=== PATIENT | male | born 1970 | race Caucasian/White ===

== ENCOUNTER 2019-12-06 07:05 | Inpatient (IN) | payer OTHER ==
[~2019-12-06] VITALS: Ht 182.9 cm; Wt 90.7 kg
[2019-12-06] VITALS (9 sets, daily range): BP systolic 107–137; BP diastolic 60–98
--- NOTE | 2019-12-06 07:10 | NUR ---
PT BIB RA FROM [facility] WITH A C/O GI BLEED. PT HAS A GTUBE WITH FRANDY BLOOD IN IT. PT IS DIAPHORETIC, TACHYPNEIC. PT HAS JONES TO GRAVITY. PT WAS PLACED ON THE MONITOR AND CONTINUOUS PULSE OX.
[2019-12-06] MEDS ORDERED: PANTOPRAZOLE 40 MG VIAL ONE (07:14)
[2019-12-06] MEDS ORDERED: ONDANSETRON HCL/PF 4 MG/2 ML VIAL ONE (07:14)
--- NOTE | 2019-12-06 07:20 | NUR ---
REPORT GIVEN TO KARLA RIZZO
--- NOTE | 2019-12-06 07:25 | NUR ---
18G IV STARTED ON LAC AND BLOOD WAS DRAWN. PINK TOP DRAWN AND BLOOD CULTURES X 2 DRAWN. PT IS STILL DIAPHORETIC AND COOL TO THE TOUCH. RESP ARE SHALLOW AND SLIGHTLY LABORED.
[2019-12-06] MEDS ORDERED: IV NS 0.9% 1,000 ML BAG IV ONE (07:30)
[2019-12-06] MEDS ORDERED: PANTOPRAZOLE 40 MG VIAL IV ONE (07:30)
[2019-12-06] MEDS ORDERED: ONDANSETRON HCL/PF 4 MG/2 ML VIAL IVP ONE (07:30)
--- NOTE | 2019-12-06 07:30 | NUR ---
MOM CALLED FOR UPDATE. WE HAVE THE CORRECT NUMBER.
[2019-12-06 07:36] LABS: BASOPHILS # (AUTO) 0.1 /CMM (0.0-0.2); BASOPHILS % (AUTO) 0.4 % (0.0-2.0); EOSINOPHILS % (AUTO) 0.2 % (0.0-6.0); HEMATOCRIT 53 % (39-51); HEMOGLOBIN 17.6 g/dL (13.5-17.5); LYMPHOCYTES # (AUTO) 0.5 /CMM (0.8-4.8); LYMPHOCYTES % (AUTO) 2.3 % (20.0-44.0); MEAN CORPUSCULAR HGB CONC 33 g/dl (31.0-36.0); MEAN CORPUSCULAR VOLUME 84 fL (80-96); MONOCYTES # (AUTO) 0.4 /CMM (0.1-1.30); MONOCYTES % (AUTO) 2.2 % (2.0-12.0); NEUTROPHILS # (AUTO) 19.3 /CMM (1.8-8.9); NEUTROPHILS % (AUTO) 94.9 % (43.0-81.0); PLATELET COUNT (AUTO) 174 /CMM (150-450); WHITE BLOOD COUNT (AUTO) 20.4 K/uL (4.3-11.0)
[2019-12-06 07:49] LABS: ALBUMIN 2.9 g/dL (3.4-5.0); BILIRUBIN,DIRECT 1.3 mg/dL (0.0-0.2); BILIRUBIN,TOTAL 2.8 mg/dL (0.2-1.0); CREATININE 1.7 mg/dL (0.6-1.3); POTASSIUM 5.1 mmol/L (3.5-5.1); TOTAL PROTEIN, SERUM 8.4 g/dL (6.4-8.2)
[2019-12-06] MEDS ORDERED: IV NS 0.9% 1,000 ML IV ONE (08:00)
[2019-12-06] MEDS ORDERED: PIPERACILLIN /TAZOBACTAM 3.375 G in IV D5W 50 ML IV ONE (08:00)
--- NOTE | 2019-12-06 08:00 | NUR ---
WHEELED OUT VIA RNEY FOR CT SCAN
[2019-12-06] MEDS ORDERED: CLINDAMYCIN 600 MG in IV D5W 100 ML IV ONE (09:00)
[2019-12-06] MEDS ORDERED: NA P133E RC (09:18)
[2019-12-06] MEDS ORDERED: FAMO20TA8 GT (09:18)
[2019-12-06] MEDS ORDERED: CHOL200026 GT (09:18)
[2019-12-06] MEDS ORDERED: TIOT18CA3 IH (09:18)
[2019-12-06] MEDS ORDERED: LOSA25TA27 GT (09:18)
[2019-12-06] MEDS ORDERED: HYDR-4077 GT (09:18)
[2019-12-06] MEDS ORDERED: INSU100V3 SQ (09:18)
[2019-12-06] MEDS ORDERED: DOCU-141 GT (09:18)
[2019-12-06] MEDS ORDERED: INSU100V7 SQ (09:18)
[2019-12-06] MEDS ORDERED: ACET-868 GT (09:18)
[2019-12-06] MEDS ORDERED: IPRA3AMP23 IH (09:18)
[2019-12-06] MEDS ORDERED: SENN-168 GT (09:18)
[2019-12-06] MEDS ORDERED: CARV12.52 GT (09:18)
[2019-12-06] MEDS ORDERED: FLUC200T GT (09:18)
[2019-12-06] MEDS ORDERED: NITR0.4T48 SL (09:18)
[2019-12-06] MEDS ORDERED: MELA3TAB63 GT (09:18)
[2019-12-06] MEDS ORDERED: GLUC1KIT IM (09:18)
[2019-12-06] MEDS ORDERED: BISA10SU11 RC (09:18)
[2019-12-06] MEDS ORDERED: NYST5ORA MM (09:18)
[2019-12-06] MEDS ORDERED: CLON1PAT2 TD (09:18)
[2019-12-06] MEDS ORDERED: CLOP75TA15 GT (09:18)
[2019-12-06] MEDS ORDERED: BECL10.62 IH (09:18)
[2019-12-06] MEDS ORDERED: AMIN30LI2 GT (09:18)
[2019-12-06] MEDS ORDERED: KRIL1CAP GT (09:18)
[2019-12-06] MEDS ORDERED: ATOR40TA GT (09:18)
[2019-12-06] MEDS ORDERED: MAGN400O6 GT (09:18)
[2019-12-06] MEDS ORDERED: NICO-676 TD (09:18)
[2019-12-06] MEDS ORDERED: ASPI-1169 GT (09:18)
[2019-12-06] MEDS ORDERED: DEXT1TAB29 GT (09:18)
[2019-12-06] MEDS ORDERED: ISOS10TA8 GT (09:18)
[2019-12-06] MEDS ORDERED: LEVA0.31 IH (09:18)
--- NOTE | 2019-12-06 09:32 | NUR ---
DR HIGGINBOTHAM AT BEDSIDE
--- NOTE | 2019-12-06 09:40 | NUR ---
called dr. vicente [phone] left [facility] [place].
--- NOTE | 2019-12-06 09:52 | NUR ---
PT ASSIGNED TO ICU [id number]
[2019-12-06] MEDS ORDERED: IV NS 0.9% 1,000 ML IV PRN (10:00)
[2019-12-06] MEDS ORDERED: FEE PK DOSING 1 MIN EA MC ONE (10:22)
--- NOTE | 2019-12-06 11:18 | NUR ---
dr carcamo at bedside
[2019-12-06] MEDS ORDERED: DIATR MEGLU/DIATRIZOATE SODIUM 30 ML BOTTLE (GASTROGRAPHIN) ONE ×2 (11:34→14:40)
--- NOTE | 2019-12-06 12:10 | NUR ---
DR LUDWIG SPOKE WITH FAMILY
[2019-12-06] MEDS ORDERED: MIDAZOLAM HCL 2 MG/2ML VIAL ONE ×2 (12:46→13:48)
[2019-12-06] MEDS ORDERED: ROCURONIUM BROMIDE 50 MG/5 ML ONE ×2 (12:46→12:50)
--- NOTE | 2019-12-06 12:59 | NUR ---
PICKED UP BY OR NURSE JAMAR. CHART OF PATIENT GIVEN.
[2019-12-06] MEDS ORDERED: BACITRACIN/POLYMYXIN B 15 GM TUBE TP ONE (14:11)
--- NOTE | 2019-12-06 14:28 | NUR ---
PT. ADMITTED FROM SURGERY AND PLACED INTO [facility] VENT VIA ET TUBE SIZE 8.0 SECURED @ 25 CM LIPLINE WITH PARAMETERS BELOW PER DR. FRANCO: AC14 VT 550ML FIO2 40% PEEP +5 BREATH SOUNDS BILATERAL COARSE RHONCHI. VENT IS PLUGGED INTO EMERGENCY OUTLET WITH ALARMS ON AND FUNCTIONING. BRIAN @ BEDSIDE. Addendum: 12/06/19 at 1455 by PRESTON CORREA RT Amended: Links added.
[2019-12-06] MEDS: IV 1/2NS 1000 ML 1,000 ML IV PRN (14:37)
[2019-12-06] MEDS ORDERED: PIPERACILLIN /TAZOBACTAM 3.375 G in IV D5W 100 ML IV SCH (15:00)
[2019-12-06] MEDS ORDERED: HEPARIN SODIUM, PORCINE 5000 UNITS/1 ML VIAL IV ONE (15:30)
[2019-12-06 15:52] LABS: BASOPHILS % (AUTO) 0.1 % (0.0-2.0); EOSINOPHILS % (AUTO) 0.1 % (0.0-6.0); HEMATOCRIT 44 % (39-51); HEMOGLOBIN 14.6 g/dL (13.5-17.5); LYMPHOCYTES # (AUTO) 0.7 /CMM (0.8-4.8); LYMPHOCYTES % (AUTO) 4.1 % (20.0-44.0); MEAN CORPUSCULAR HGB CONC 33 g/dl (31.0-36.0); MEAN CORPUSCULAR VOLUME 84 fL (80-96); MONOCYTES # (AUTO) 0.6 /CMM (0.1-1.30); MONOCYTES % (AUTO) 3.5 % (2.0-12.0); NEUTROPHILS # (AUTO) 16.8 /CMM (1.8-8.9); NEUTROPHILS % (AUTO) 92.2 % (43.0-81.0); PLATELET COUNT (AUTO) 121 /CMM (150-450); RED BLOOD CELL COUNT(AUTO) 5.21 MIL/uL (4.5-6.0); WHITE BLOOD COUNT (AUTO) 18.2 K/uL (4.3-11.0)
[2019-12-06 16:14] LABS: CALCIUM, SERUM 8.4 mg/dL (8.5-10.1); CREATININE 1.7 mg/dL (0.6-1.3); POTASSIUM 5.2 mmol/L (3.5-5.1)
[2019-12-06] MEDS: VANCOMYCIN 1 GM in IV D5W 250 ML IV SCH ×2 (16:15→23:42)
[2019-12-06] MEDS: HEPARIN INFUSION/D5W 500 ML IV PRN (16:23)
[2019-12-06] MEDS ORDERED: ACETAMINOPHEN 650 MG/20.3 ML UDC NG PRN (16:30)
[2019-12-06] MEDS ORDERED: MORPHINE SULFATE INJ 2 MG/ML DISP.SYRIN IV PRN (16:30)
[2019-12-06] MEDS ORDERED: DEXTROSE 50%-WATER 50 ML DISP.SYRIN IV PRN (16:30)
[2019-12-06 16:47] LABS: ABG BASE EXCESS -1.9 mmol/L; ABG OXYGEN SATURATION 94.2 % (92.0-98.5); ABG PCO2 33.5 mmHg (35.0-45.0); ABG PH 7.428 (7.350-7.450); ABG PO2 71.4 mmHg (75.0-100.0); AaDO2 175.3 mmHg; COHb 1.3 % (0.5-1.5); MetHb 0.4 % (0.0-1.5); O2Hb 92.6 % (94.0-97.0); PEEP,BG 5 cm H2O; SITE, ABG Right Brachial; VT, ABG 550 mL
[2019-12-06] MEDS: BLOOD SUGAR DIAGNOSTIC 1 EACH STRIP IN SCH (17:20)
[2019-12-06] MEDS: INSULIN REGULAR, HUMAN 100 UNIT/ML 3 ML VIAL SQ PRN ×2 (17:21→23:57)
[2019-12-06] MEDS: METRONIDAZOLE 500MG/ NS 100ML 500 MG in PREMIX 1 EA IV SCH (17:54)
[2019-12-06] MEDS ORDERED: PROPOFOL 100 ML IV PRN (18:00)
[2019-12-06] MEDS ORDERED: PIPERACILLIN /TAZOBACTAM 3.375 G in IV D5W 50 ML IV SCH (18:00)
--- NOTE | 2019-12-06 18:38 | NUR ---
RN CLOSING NOTES PT REMAINS INTUBATED. ON VENT. NO RESPIRATORY DISTRESS NOTED. NO SOB NOTED. NO SIGNS OF PAIN NOTED. OG IN PLACE CONNECTED TO LOW INTERMITTENT SUCTION. GT IN PLACE CONNECTED TO DRAIN. DRESSING IN PLACE. NO SIGNS OF BLEEDING NOTED. IVF I IV LINES IN PLACE. ON HEPARIN DRIP, PTT AT 2230. IVF INFUSING. FC IN PLACE. NO HEMATURIA NOTED. BLE ELEVATED. WILL ENDORSE FOR CONTINUITY OF CARE.
[2019-12-06] MEDS: CEFAZOLIN 1 GM in IV D5W 50 ML IV SCH (18:54)
--- NOTE | 2019-12-06 19:59 | NUR ---
OFFICER CAPTAIN. INITIAL ASSESSMENT. RECEIVED THE PT REST ON THE BED. ORALLY INTUBATED, .PT IS OBTUNDED, ETT #8 AC 14,TV 550,FIO2 40%,PEEP 5. SAT 98%. NO ACUTE DISTRESS NOTED. GIS DATABASE ADMINISTRATOR SHOWING NSR. RESPONDING DEEP PAIN FULL STIMULI S/P EX LAP GT PLACEMENT. DRAIN BAG CONNECTED TO GT. OGT LOW INTERMITTENT SUCTION.FC PATENT. NADER SOFT WRIST RESTRAINT CHECKED AND RELEASED. NO INJURY OR REDNESS NOTED. IV RT FA 18G,LT AC 14,TV 550,FIO2 40%,PEEP 5. SAT 98%. IV LT AC 18G,RT FA 18,.IVF 1/2NS 100ML/H,HEPARIN DRIP 1600 UNIT , WILL CONTINUE TO MONITOR VITALS.
[2019-12-07] VITALS (24 sets, daily range): BP systolic 115–146; BP diastolic 58–99
[2019-12-07] MEDS: CEFAZOLIN 1 GM in IV D5W 50 ML IV SCH ×3 (00:33→17:21)
[2019-12-07] MEDS: METRONIDAZOLE 500MG/ NS 100ML 500 MG in PREMIX 1 EA IV SCH ×3 (00:35→16:23)
--- NOTE | 2019-12-07 01:24 | NUR ---
SAP SOLUTION MANAGER CONSULTANT. PTT >170.NOTIFIED MD CHAPARRO. . ORDER IS HEPARIN DRIP HOLD 2HOURS. THEN RESTART PER PROTOCOL
--- NOTE | 2019-12-07 04:27 | NUR ---
SCOURING PADS SUPERVISOR. AM CARE, ORAL CARE, BED BATH GIVEN. LINEN CHANGED, REMAINING SAME VENT SETTING TOLERATED WELL. SAT 98%. NO ACUTE DISTRESS NOTED, INSTRUMENT/CONTROL TECHNICIAN SHOWING NSR. IV RT AND LT HAND. IVF 1/2NS 100ML/H. DIPRIVAN 4MCG/KG/MIN. FC PATENT. OGT LOW INTERMITTENT SUCTION.FC PATENT. URINE DRAINING. HOB ELEVATED. NADER SOFT WRIST RESTRAINT CHECKED AND RELEASED. NO INJURY OR REDNESS NOTED. TURN AND REPOSITION Q2H. GT SITE BLEEDING NOTED. WILL CONTINUE TO MONITOR.
[2019-12-07 05:17] LABS: BASOPHILS % (AUTO) 0.1 % (0.0-2.0); EOSINOPHILS % (AUTO) 0.1 % (0.0-6.0); HEMATOCRIT 38 % (39-51); HEMOGLOBIN 12.6 g/dL (13.5-17.5); LYMPHOCYTES # (AUTO) 0.8 /CMM (0.8-4.8); LYMPHOCYTES % (AUTO) 6.1 % (20.0-44.0); MEAN CORPUSCULAR HGB CONC 33 g/dl (31.0-36.0); MEAN CORPUSCULAR VOLUME 84 fL (80-96); MONOCYTES # (AUTO) 0.6 /CMM (0.1-1.30); MONOCYTES % (AUTO) 4.7 % (2.0-12.0); NEUTROPHILS # (AUTO) 12.2 /CMM (1.8-8.9); PLATELET COUNT (AUTO) 114 /CMM (150-450); RED BLOOD CELL COUNT(AUTO) 4.52 MIL/uL (4.5-6.0); WHITE BLOOD COUNT (AUTO) 13.7 K/uL (4.3-11.0)
[2019-12-07 05:29] LABS: CALCIUM, SERUM 8.2 mg/dL (8.5-10.1); CREATININE 1.6 mg/dL (0.6-1.3); MAGNESIUM 1.7 mg/dL (1.8-2.4); PHOSPHORUS 4.3 mg/dL (2.5-4.9); POTASSIUM 4.3 mmol/L (3.5-5.1)
[2019-12-07] MEDS: BLOOD SUGAR DIAGNOSTIC 1 EACH STRIP IN SCH ×5 (06:02→23:27)
[2019-12-07] MEDS: INSULIN REGULAR, HUMAN 100 UNIT/ML 3 ML VIAL SQ PRN ×3 (06:07→18:13)
[2019-12-07] MEDS: HEPARIN INFUSION/D5W 500 ML IV PRN ×2 (06:33→18:15)
--- NOTE | 2019-12-07 06:36 | NUR ---
OIL PAINTER. PTT IS 50.3. NOTIFIED MD CHAPARRO. RESTARTED WITH 800 UNITS/H RECHECK PTT 1230 PN . GT PLACEMENT SITE BLEEDING NOTED. MD CHAPARRO MADE AWARE
--- NOTE | 2019-12-07 07:26 | NUR ---
ogt intermittent no residual. gt drain 100 ml
--- NOTE | 2019-12-07 08:00 | NUR ---
RECEIVED ORALLY INTUBATED TO VENT- EASILY AROUSABLE TO NAME. ABLE TO FOLLOW SIMPLE COMMANDS. ABLE TO TRACK SPEAKER. POSITIVE GAG/COUGH REFLEX. HEPARIN GTT AT 800 UNITS/HOUR. VITAL SIGNS STABLE.
--- NOTE | 2019-12-07 08:20 | NUR ---
PATIENT SEEN AND EXAMINED BY DR. MENDOZA-BRAYDEN FIELDS TO START VENT WEANING. PATIENT ON DIPRIVAN DRIP AT 4 MCG/KG/MIN -TURNED OFF AT THIS TIME. WILL AWAIT FOR PATIENT TO BE FULLY AWAKE-RT AWARE OF WEANING ORDERS.
--- NOTE | 2019-12-07 08:49 | NUR ---
VENT CHANGES MADE BELOW PER DR. MENDOZA: CPAP 5 PS 10 FIO2 40% RN AWARE ON ABOVE CHANGES. Addendum: 12/07/19 at 0851 by PRESTON CORREA RT Amended: Links added.
[2019-12-07] MEDS: INSULIN GLARGINE, 100 UNIT/ML CARTRIDGE SQ SCH ×3 (09:00→22:39)
--- NOTE | 2019-12-07 09:00 | NUR ---
PATIENT DIAPHORETIC -BS CHECKED 193. TEMP-98.6. PATIENT S/P EXPLOR LAP-NPO STATUS. HELD LANTUS AT THIS TIME.
--- NOTE | 2019-12-07 10:00 | NUR ---
PATIENT TOLERATING VENT WEANING WELL. NO DISTRESS NOTED.
[2019-12-07 10:14] LABS: ABG BASE EXCESS 2.4 mmol/L; ABG OXYGEN SATURATION 95.5 % (92.0-98.5); ABG PCO2 35.7 mmHg (35.0-45.0); ABG PH 7.477 (7.350-7.450); ABG PO2 78.8 mmHg (75.0-100.0); AaDO2 165.3 mmHg; COHb 0.6 % (0.5-1.5); MetHb 0.3 % (0.0-1.5); O2Hb 94.6 % (94.0-97.0); SITE, ABG Right Radial; VENT MODE, BG CPAP 5 / PS10
--- NOTE | 2019-12-07 10:45 | NUR ---
DR. LUDWIG AT BEDSIDE. PER MD FIELDS TO D/C OGT. GT TO CONTINUE TO DRAIN TO GRAVITY.
[2019-12-07] MEDS ORDERED: DC PROPOFOL WHEN EXTUBATED XX PRN (11:00)
[2019-12-07] MEDS ORDERED: Magnesium 1GM/D5W 100ML PREMIX 100 ML IV SCH (11:10)
--- NOTE | 2019-12-07 11:30 | NUR ---
@ 1130 pt. extubated and placed into 3 lpm o2 flow via nasal cannula. spo2 95% HR 115 - 118 bpm Addendum: 12/07/19 at 1136 by PRESTON CORREA RT Amended: Links added.
[2019-12-07] MEDS: VANCOMYCIN 1 GM in IV D5W 250 ML IV SCH ×2 (11:59→22:35)
--- NOTE | 2019-12-07 12:00 | NUR ---
PATIENT AWAKE, MUMBLES WORDS POST EXTUBATION. GOOD COUGH EFFORT. KEPT ON HIGH FOWLERS POSITION. LOW GRADE FEVER-COOLING MEASURES ONGOING.
--- NOTE | 2019-12-07 14:00 | NUR ---
PTT WITHIN THERAPEUTIC RANGE. NO CHANGES MADE. HEPARIN GTT REMAINS AT 800 UNITS PER HOUR.
[2019-12-07] MEDS: IV 1/2NS 1000 ML 1,000 ML IV PRN ×2 (16:29)
--- NOTE | 2019-12-07 19:10 | NUR ---
STABLE WITHOUT DISTRESS. NO ACTIVE SIGNS OF BLEEDING.
--- NOTE | 2019-12-07 19:30 | NUR ---
Received report from the Day RN Nancy. Initial assessment done. Pt. resting, alert, awake, oriented x 1, arousable to name. Pt. calm, in a sitting position in bed/with high back rest. Pt. on 3L/NC continuous, with mild short of breath, Sinus Tachycardia @ the monitor, no s/s of facial grimacing except for occasional non-productive cough. Pt. with left sided weakness and Aphasic, with continuous IV drip of heparin @ 800 units per hour @ 16 mls./hr. @ the [facility] with latest APTT result of 50.7 which is therapeutic. IVF of 1/2 NS @ 100 mls./hr. continuous @ the RFA. Will continue to monitor pt. Keep pt. safe, clean, dry, warm and comfortable in bed.
--- NOTE | 2019-12-07 20:00 | NUR ---
Complete assessment done. Pt. alert, awake, oriented x 1 only. Quiet, calm and Aphasic with Left sided- weakness. Pt. arousable to name and can follow simple commands. Pt. provided assistance with regards to activities of daily living. Provided bedside nsg. care for comfort of position, hygiene and safety while in bed. Pt. HOB UP scooted high in a sitting position as pt. wants for comfort. Pt. on 02 @ 3L/NC continuous, on continuous IVF of 1/2 NS @ 100 mls./hr., and IV drip of Heparin @ 800 units/hr. Pt.'s latest APTT today is = 50.7 , on therapeutic level, Heparin remains 800 units/ hr. = 16 mls./hr. continuous. Pt. next APTT will be drawn for AM labs. tomorrow 12/08/2019. Pt. s/p G-tube placement with drainage by gravity with greenish output. Pt. face and body calm and No s/s of agitation or discomfort @ this time. Pt. encouraged not to pull 02 from his nose. Pt. still on NPO.
--- NOTE | 2019-12-07 22:30 | NUR ---
Accucheck taken with result of BS = 202 , No Insulin given since pt. is not taking any food or NPO and is NOT on Dextrose IVF. Pt. NOT given any Insulin S/S to prevent Hypoglycemia.
[2019-12-07 22:33] LABS: CALCIUM, SERUM 7.6 mg/dL (8.5-10.1); CREATININE 1.6 mg/dL (0.6-1.3); POTASSIUM 4.1 mmol/L (3.5-5.1)
--- NOTE | 2019-12-07 22:35 | NUR ---
Antibiotic Vancomycin IV given @ around this time. Pt. provided health teachings on the use/benefits of this antibiotic being administered IV - see Emar. Keep pt. safe, comfortable and fourdrinier machine tender bed.
[2019-12-08] VITALS (15 sets, daily range): BP systolic 119–148; BP diastolic 53–89
--- NOTE | 2019-12-08 | NUR ---
Reassessment done, temp. = 98.2 degrees F. Afebrile and sitting quietly in bed. Accucheck is about 202 @ this time. Pt. still on NPO, no coverage of s/s given.
[2019-12-08] MEDS: METRONIDAZOLE 500MG/ NS 100ML 500 MG in PREMIX 1 EA IV SCH ×3 (01:44→16:44)
--- NOTE | 2019-12-08 01:44 | NUR ---
Flagyl 500 mg. IV given. Will continue to monitor pt.
--- NOTE | 2019-12-08 02:04 | NUR ---
Accucheck taken for spot check with result of BS = 224 , No coverage of Insulin S/S due to continuous NPO.
[2019-12-08] MEDS: CEFAZOLIN 1 GM in IV D5W 50 ML IV SCH (02:08)
--- NOTE | 2019-12-08 02:08 | NUR ---
Ancef 1 GM IV given @ this time. Pt. provided health teachings. Pt. turned/repositioned and placed in a high back rest @ 75 degrees angle. Keep 02 sat. greater 92 %, still on 3L/NC continuous. NO s/s of pain or discomfort. No s/s of agitation or moaning or crying. No s/s of facial grimacing. Pt. is resting quietly. Pt. has slurred speech when trying to speak occasionally.
--- NOTE | 2019-12-08 02:35 | NUR ---
Pt. HR = 110-115/minute and is 02 sat. from 88-89 % on 3L/NC intermittently then it will go back 90-93 %, with hard, dry, non- productive, mild to mod. short of breath, BP = 148/89. Doctor Henri Lozano called/notified about pt. present condition. Dr. Henri Lozano gave new orders of breathing treatment Xopenex and Metoprolol IV prn - see orders.
[2019-12-08] MEDS ORDERED: METOPROLOL TARTRATE INJ 5 MG/5 ML AMPUL IVP PRN (03:00)
[2019-12-08] MEDS ORDERED: LEVALBUTEROL HCL NEB 1.25 MG/0.5 ML VIAL.NEB NEB ONE (03:00)
[2019-12-08] MEDS: IV 1/2NS 1000 ML 1,000 ML IV PRN (03:34)
--- NOTE | 2019-12-08 04:00 | NUR ---
Pt. sleeping @ this time. Maintained a safe and quiet environment. Will continue to monitor pt. V/S.
[2019-12-08 05:31] LABS: BASOPHILS % (AUTO) 0.2 % (0.0-2.0); EOSINOPHILS % (AUTO) 0.1 % (0.0-6.0); HEMATOCRIT 28 % (39-51); HEMOGLOBIN 9.4 g/dL (13.5-17.5); LYMPHOCYTES # (AUTO) 0.6 /CMM (0.8-4.8); LYMPHOCYTES % (AUTO) 5.1 % (20.0-44.0); MEAN CORPUSCULAR HGB CONC 34 g/dl (31.0-36.0); MEAN CORPUSCULAR VOLUME 83 fL (80-96); MONOCYTES # (AUTO) 0.4 /CMM (0.1-1.30); MONOCYTES % (AUTO) 3.9 % (2.0-12.0); NEUTROPHILS # (AUTO) 10.3 /CMM (1.8-8.9); NEUTROPHILS % (AUTO) 90.7 % (43.0-81.0); PLATELET COUNT (AUTO) 87 /CMM (150-450); RED BLOOD CELL COUNT(AUTO) 3.33 MIL/uL (4.5-6.0); WHITE BLOOD COUNT (AUTO) 11.4 K/uL (4.3-11.0)
[2019-12-08 05:43] LABS: CREATININE 1.6 mg/dL (0.6-1.3); POTASSIUM 3.8 mmol/L (3.5-5.1)
--- NOTE | 2019-12-08 06:00 | NUR ---
Partial bedbath given. Cleansed pt. and changed all bed linens. Gastric drainage - dark greenish with output of 575 mls. total for the whole 12 hrs. shift.
--- NOTE | 2019-12-08 06:21 | NUR ---
Accucheck AC taken with result of BS = 216. No coverage given. Pt. on continuous NPO and IVF is not on Dextrose. Keep pt. in sitting position to breathe good. Pt. with RT or breathing treatment as scheduled.
[2019-12-08 06:22] LABS: LYMPHOCYTES % (MANUAL) 3 % (16-48); MONOCYTES % (MANUAL) 2 % (0-11.0); NEUTROPHILS % (MANUAL) 95 (42-76)
[2019-12-08] MEDS: BLOOD SUGAR DIAGNOSTIC 1 EACH STRIP IN SCH ×4 (06:27→23:58)
--- NOTE | 2019-12-08 07:00 | NUR ---
Gave report to Day shift assigned KARLA Deleon. The latest APTT result done early Am today is = 45.7 rounding to 46. Day Shift KARLA Deleon will follow up with the Heparin protocol.
[2019-12-08] MEDS: ALBUTEROL FS 2.5 MG/3 ML VIAL.NEB NEB SCH ×3 (07:34→19:34)
[2019-12-08] MEDS ORDERED: LEVALBUTEROL HCL NEB 1.25 MG/0.5 ML VIAL.NEB NEB SCH (07:35)
--- NOTE | 2019-12-08 09:05 | NUR ---
ICU/RN DUE MEDS ARE GIVEN ORDERED.PT IS ON HEPARIN DRIP.V/S STABLE.DR LUDWIG SEEN THE PT NEW ORDERS RECEIVED.
[2019-12-08] MEDS ORDERED: GLUCERNA 1.2 1,000 ML BOTTLE NG PRN (11:00)
--- NOTE | 2019-12-08 11:00 | NUR ---
ICU/RN HEPARIN DRIP STOP.OK TO USE G-TUBE .START FEEDING AT 20 ML/HR. WOUND DRESSING DONE PT HAS SMALL BLOODY DISCHARGE FROM G-TUBE SIDE AND SURGICAL WOUND SIDE, NEW DRESSING APPLIED.V/S STABLE,AFEBRILE.
[2019-12-08] MEDS: APIXABAN 5 MG TABLET PO SCH ×2 (12:19→16:45)
[2019-12-08] MEDS: PIPERACILLIN /TAZOBACTAM 3.375 G in IV D5W 50 ML IV SCH ×3 (12:20→23:52)
--- NOTE | 2019-12-08 12:55 | NUR ---
ICU/RN PT TRANSFERRED TO TELE UNIT IN STABLE CONDITION.V/S STABLE.AFEBRILE.NO PAIN REPORTED AT THIS TIME.REPORT GIVEN TO STEPHANIE/RN. BS-204.
--- NOTE | 2019-12-08 13:00 | NUR ---
BERTRAND RN NOTE RECEIVED REPORT AT BEDSIDE, PATIENT IN BED ASLEEP BUT EASILY AROUSABLE TO TOUCH AND NAME. PATIENT IS ALERT AND ORIENTED TO SELF ONLY, APHASIC. HAS A NEW GT SITE PLACED 12/06. S/P EXTUBATED ON 12/07. CURRENTLY ON 3L NC, SATING WELL. ON TELE MONITOR, SR. HAS A JONES CATHETER WITH CLEAR AND YELLOW URINE. NO FEEDING AT THIS TIME, BUT PER CLAIMS SPECIALIST OK TO START GLUCERNA 1.2 AT 20 ML/HR. NO GOAL FOR NOW. HAS A RIGHT FA #18 AND LEFT AC #18 WITH HALF NS AT 75 ML/HR. PATIENT WAS ON HEPARIN DRIP IN ICU, BUT DC'D TODAY AND STARTED ON ELIQUIS TODAY. BED LOCKED AND IN LOWEST POSITION. CALL LIGHT WITHIN REACH. WILL CONTINUE TO MONITOR
[2019-12-08] MEDS: INSULIN REGULAR, HUMAN 100 UNIT/ML 3 ML VIAL SQ PRN ×2 (13:22→17:52)
--- NOTE | 2019-12-08 17:28 | NUR ---
RN NOTE VANCO TROUGH 21, WILL NOT ADMINISTER VANCO IV. PHARMACY MADE AWARE
[2019-12-08] MEDS ORDERED: VANCOMYCIN 1 GM in IV D5W 250 ML IV SCH (18:00)
--- NOTE | 2019-12-08 18:53 | NUR ---
RN CLOSING NOTE PATIENT IN BED, AWAKE AND ALERT. NO COMPLAINS OF ANY PAIN NOR SOB AT THIS TIME. ALL MEDS GIVEN. ALL NEEDS MET. REPOSITIONED PER PROTOCOL. JONES INTACT WITH CLEAR AND YELLOW URINE. GTF WITH GLUCERNA 1.2 AT 20 ML/HR. NO GOAL FOR NOW. NO RESIDUAL NOTED. WILL ENDORSE TO NOC SHIFT FOR LIANET
--- NOTE | 2019-12-08 20:45 | NUR ---
RN OPENING NOTE REPORT RECIEVED FROM MAXIME ACOSTA. PATIENT IN BED, AWAKE AND ALERT. PT HAS RESIDUAL APHASIA PER RECORDS FROM [facility]. PT GRUNTS/MUMBLES FOR RESPONSE TO VERBAL STIMULI. JONES CATHETER INTACT DRAINING CLEAR YELLOW URINE. GTF INITIATED TODAY, GLUCERNA 1.2 AT 20 ML/HR WITH NO RESIDUAL,GT PLACEMENT CONFIRMED WITH AUSCULTATION, FLUSHED. NO ORDERS TO ADVANCE TUBE FEEDING WILL CONT TO MONITOR.
[2019-12-08] MEDS ORDERED: INSULIN GLARGINE, 100 UNIT/ML CARTRIDGE SQ SCH (22:00)
[2019-12-09] VITALS (12 sets, daily range): BP systolic 137–170; BP diastolic 68–105
[2019-12-09] MEDS: INSULIN REGULAR, HUMAN 100 UNIT/ML 3 ML VIAL SQ PRN ×4 (00:04→17:09)
[2019-12-09] MEDS: IV 1/2NS 1000 ML 1,000 ML IV PRN ×2 (00:06→17:03)
[2019-12-09] MEDS: METRONIDAZOLE 500MG/ NS 100ML 500 MG in PREMIX 1 EA IV SCH ×2 (00:32→08:34)
[2019-12-09] MEDS: ALBUTEROL FS 2.5 MG/3 ML VIAL.NEB NEB SCH ×4 (01:39→20:20)
--- NOTE | 2019-12-09 01:53 | NUR ---
patient found to have removed iv from left ac. patient cleaned pressure dressing applied iv catheter intact. iv to right forearm is cdi and patent. arm sleeve applied to right arm will cont to monitor.
--- NOTE | 2019-12-09 05:00 | NUR ---
PICTURE TAKEN OF SACRAL WOUND MEPILEX APPLIED.
[2019-12-09] MEDS: BLOOD SUGAR DIAGNOSTIC 1 EACH STRIP IN SCH ×3 (05:47→17:10)
[2019-12-09] MEDS: PIPERACILLIN /TAZOBACTAM 3.375 G in IV D5W 50 ML IV SCH (05:47)
[2019-12-09 07:11] LABS: BASOPHILS % (AUTO) 0.1 % (0.0-2.0); EOSINOPHILS % (AUTO) 0.7 % (0.0-6.0); HEMATOCRIT 21 % (39-51); HEMOGLOBIN 7.2 g/dL (13.5-17.5); LYMPHOCYTES # (AUTO) 0.4 /CMM (0.8-4.8); LYMPHOCYTES % (AUTO) 5.4 % (20.0-44.0); MEAN CORPUSCULAR HGB CONC 34 g/dl (31.0-36.0); MEAN CORPUSCULAR VOLUME 83 fL (80-96); MONOCYTES # (AUTO) 0.4 /CMM (0.1-1.30); MONOCYTES % (AUTO) 5.7 % (2.0-12.0); NEUTROPHILS # (AUTO) 6.7 /CMM (1.8-8.9); NEUTROPHILS % (AUTO) 88.1 % (43.0-81.0); PLATELET COUNT (AUTO) 86 /CMM (150-450); RED BLOOD CELL COUNT(AUTO) 2.58 MIL/uL (4.5-6.0); WHITE BLOOD COUNT (AUTO) 7.6 K/uL (4.3-11.0)
[2019-12-09 07:21] LABS: CALCIUM, SERUM 7.6 mg/dL (8.5-10.1); CREATININE 1.6 mg/dL (0.6-1.3); POTASSIUM 3.7 mmol/L (3.5-5.1)
--- NOTE | 2019-12-09 07:31 | NUR ---
INCINERATOR PLANT LABORER NOTE PATIENT IN BED AWAKE ALERT X1 . ON 3L NC NO SOB NOTED AT THIS TIME, WITH JONES CATH TO GRAVITY WITH YELLOW COLOR URINE , ON G TUBE FEEDING ORDERED AT 20 ML PER HOUR, KEEP HOB ELEVATED AT ALL TIME , RT FA IN PLACE ON IVF ORDERED , BED IN LOWEST AND LOCKED POSITION , CALL LIGHT WITHIN REACH , PLAN OF CARE DISCUSSED WITH PATIENT, WILL MONITOR
--- NOTE | 2019-12-09 07:48 | NUR ---
MENTAL TESTER NOTE ON BREATHING TX ORDERED BY RT
[2019-12-09] MEDS: APIXABAN 5 MG TABLET PO SCH (08:34)
--- NOTE | 2019-12-09 08:42 | NUR ---
TELESALES MANAGER NOTE DR ROBERSON AT [facility] AWARE THAT HG 7.2 STATED THAT WILL ORDER 1INUT PRBC ,WILL F\U Addendum: 12/09/19 at 1248 by RADHA MIJARES RN [id number] DR ROBERSON AWARE THAT PLATELETS 82 Addendum: 12/09/19 at 1249 by RADHA MIJARES RN Platelets 86, dr roberson aware of it
--- NOTE | 2019-12-09 09:09 | NUR ---
WOUND CARE CONSULT: PT PRESENTS WITH INTACT DEEP TISSUE INJURY TO SACRAL/BUTTOCKS AREA AND ALSO NOTED TO HAVE DRY/INTACT SURGICAL DRESSING TO ABDOMEN. RECOMMENDATIONS MADE FOR SKIN PROTECTION AND WOUND CARE. SURGEON FOLLOWING ABDOMINAL INCISION. PER NURSING STAFF AND MD, PT ON ELIQUIS AT THIS TIME AND WAS PREVIOUSLY INTUBATED. PT ON ROLANDA ISOFLEX LOW AIRLOSS BED. MD IN AGREEMENT WITH PLAN OF CARE. Addendum: 12/09/19 at 0911 by ANGEL GARRETT WNDNU Amended: Links added.
[2019-12-09] MEDS ORDERED: Z GUARD REMEDY 2 OZ OINT TP PRN (09:30)
--- NOTE | 2019-12-09 09:44 | NUR ---
WASTEWATER DESIGN ENGINEER NOTE PER DR HIGGINBOTHAM ORDER ELIQUIS CHANGED TO 5 MG BID
[2019-12-09] MEDS: Z GUARD REMEDY 2 OZ OINT TP SCH (09:47)
[2019-12-09] MEDS: AMOX/CLAVULANATE 875 MG TABLET PO SCH ×2 (09:47→20:49)
[2019-12-09] MEDS: VANCOMYCIN 1 GM in IV D5W 250 ML IV SCH (09:51)
--- NOTE | 2019-12-09 10:36 | NUR ---
MS RN NOTE DR HIGGINBOTHAM SPOKE WITH MOTHER CHRISTIANO LIPSCOMB TO HAVE BLOOD TRANSFUSION
--- NOTE | 2019-12-09 11:06 | NUR ---
MS RN NOTE PER DIETARY OK TO HAVE F G TUBE FEEDING AT 20 ML PER HOUR AND MAX DOSE 75 ML PER HOUR ,WILL F\U
[2019-12-09] MEDS ORDERED: GLUCERNA 1.2 1,000 ML BOTTLE NG PRN ×2 (11:30)
--- NOTE | 2019-12-09 12:00 | NUR ---
MS RN NOTE IST 1UNIT PRBC START TO TRANSFUSE, NO ADVERSE REACTION NOTED AT THIS TIME, WILL MONITOR
--- NOTE | 2019-12-09 13:53 | NUR ---
ms rn note on breathing tx by rt ,cont on blood transfusion, no fever ,no co pain at this time will cont to monitor
--- NOTE | 2019-12-09 15:30 | NUR ---
MS RN NOTE BLOOD TRANSFUSION COMPLETED NOT IN DISTRESS, NO ADVERSE REACTION NOTED FAMILY AT BEDSIDE, SPOKE WITH DR HIGGINBOTHAM NOTIFIED THAT BP 170/75 WITH NEW ORDER GIVEN WILL F\U
[2019-12-09] MEDS: ISOSORBIDE DINITRATE (10MG) 10 MG TABLET GT SCH (16:10)
[2019-12-09] MEDS ORDERED: ISOSORBIDE DINITRATE (10MG) 10 MG TABLET GT SCH (17:00)
[2019-12-09] MEDS ORDERED: APIXABAN 5 MG TABLET PO SCH (17:00)
--- NOTE | 2019-12-09 17:00 | NUR ---
MS RN NOTE CONT ON IVF ORDERED ,NOT IN DITRESS, WILL CONT TO MONITOR
--- NOTE | 2019-12-09 19:03 | NUR ---
MS RN NOTE CONT ON G TUBE FEEDING AT 30 ML PER HOUR , KEEP HOB ELEVATED AT ALL TIME ,STILLON O2 ORDERED ,NO SOB NOTED , ON IVF ORDERED, KEEP CLEAN DRY ,REPOSITION DONE , CALL LIOGHT WITHIN REACH, WILL CONT TO MONITOR CLOSELY
--- NOTE | 2019-12-09 19:15 | NUR ---
MS/RN NOTES RECEIVED PT. LYING IN BED. PT. IS AWAKE AND OPENS EYES. PT. MAKES SOUNDS. PT. IS BREATHING EVEN AND UNLABORED ON 2LPM O2 VIA NC. NO SOB, RESPIRATORY DISTRESS OR S/S OF PAIN NOTED AT THIS TIME. PT. WITH RIGHT FOREARM 18 GAUGE PERIPHERAL IV PRESENT, PATENT AND INTACT ADMINISTERING TO PT. 1/2 NS @ 75 ML/HR. PT. WITH G-TUBE PRESENT, PATENT AND INTACT ADMINISTERING TO PT. GLUCERNA 1.2 @ 30ML/HR. PT. IS TOLERATING TUBE FEEDING WELL. NO RESIDUALS NOTED AT THIS TIME. PT. WITH JONES CATHETER PRESENT, PATENT AND INTACT. BED LOCKED AND IN LOWEST POSITION, SIDE RAILS UP X3, BED ALARM ON, WILL CONTINUE TO MONITOR.
[2019-12-09] MEDS: hydrALAZINE HCL 50 MG TABLET GT SCH (20:49)
[2019-12-09] MEDS ORDERED: INSULIN GLARGINE, 100 UNIT/ML CARTRIDGE SQ SCH (22:00)
[2019-12-10] MEDS: BLOOD SUGAR DIAGNOSTIC 1 EACH STRIP IN SCH ×4 (01:17→17:10)
[2019-12-10] MEDS: INSULIN REGULAR, HUMAN 100 UNIT/ML 3 ML VIAL SQ PRN ×3 (01:18→12:37)
[2019-12-10] MEDS: ALBUTEROL FS 2.5 MG/3 ML VIAL.NEB NEB SCH ×3 (02:35→14:09)
[2019-12-10 04:00] VITALS: BP 168/83
[2019-12-10] MEDS: hydrALAZINE HCL 50 MG TABLET GT SCH ×4 (06:06→17:17)
--- NOTE | 2019-12-10 06:06 | NUR ---
MS/RN NOTES PT. NOTED WITH ELEVATED BP 187/110 HR 105. PT. HAS NO S/S OF PAIN NOTED AT THIS TIME. PER CHARGE NURSE DIPAK DO NOT ADMINISTER PRN METOPROLOL IVP WITHOUT OFFICIAL ORDER FOR TELE MONITORING BY DR. HIGGINBOTHAM. ATTEMPTED TO CONTACT DR. HIGGINBOTHAM MULTIPLE TIMES AND WAS UNABLE TO REACH HIM. PER CHARGE NURSE DIPAK ADMINISTER TO PT. SCHEDULED 0900 HYDRALAZINE 50MG NOW AND CONTINUE TO MONITOR.
[2019-12-10 06:40] LABS: BASOPHILS % (AUTO) 0.2 % (0.0-2.0); EOSINOPHILS % (AUTO) 0.8 % (0.0-6.0); HEMATOCRIT 24 % (39-51); HEMOGLOBIN 8.3 g/dL (13.5-17.5); LYMPHOCYTES # (AUTO) 0.5 /CMM (0.8-4.8); LYMPHOCYTES % (AUTO) 5.9 % (20.0-44.0); MEAN CORPUSCULAR HGB CONC 34 g/dl (31.0-36.0); MEAN CORPUSCULAR VOLUME 84 fL (80-96); MONOCYTES # (AUTO) 0.6 /CMM (0.1-1.30); MONOCYTES % (AUTO) 6.8 % (2.0-12.0); NEUTROPHILS # (AUTO) 7.2 /CMM (1.8-8.9); NEUTROPHILS % (AUTO) 86.3 % (43.0-81.0); PLATELET COUNT (AUTO) 103 /CMM (150-450); RED BLOOD CELL COUNT(AUTO) 2.88 MIL/uL (4.5-6.0); WHITE BLOOD COUNT (AUTO) 8.3 K/uL (4.3-11.0)
--- NOTE | 2019-12-10 06:55 | NUR ---
MS/RN NOTES PT. IS LYING IN BED RESTING. BREATHING EVEN AND UNLABORED ON 2LPM O2 VIA NC. NO SOB, RESPIRATORY DISTRESS OR S/S OF PAIN NOTED AT THIS TIME. PT. WITH RIGHT FOREARM 18 GAUGE PERIPHERAL IV PRESENT, PATENT AND INTACT. PT. WITH G-TUBE PRESENT, PATENT AND INTACT ADMINISTERING TO PT. GLUCERNA 1.2 @ 40ML/HR. PT. IS TOLERATING TUBE FEEDING WELL. NO RESIDUALS NOTED AT THIS TIME AND THROUGHOUT SHIFT. PT. WITH JONES CATHETER PRESENT, PATENT AND INTACT. ALL PT. NEEDS MET. PT. OFFLOADED, TURNED AND REPOSITIONED Q2H AND NEEDED. BED LOCKED AND IN LOWEST POSITION, SIDE RAILS UP X3, BED ALARM ON, WILL ENDORSE TO DAYSHIFT NURSE FOR CONTINUITY OF CARE.
[2019-12-10 07:01] LABS: CALCIUM, SERUM 7.9 mg/dL (8.5-10.1); CREATININE 1.5 mg/dL (0.6-1.3); POTASSIUM 3.9 mmol/L (3.5-5.1)
[2019-12-10 08:00] VITALS: BP 174/103
[2019-12-10] MEDS ORDERED: ACETAMINOPHEN 650 MG/20.3 ML UDC GT PRN (08:46)
[2019-12-10] MEDS ORDERED: AMOX/CLAVULANATE 875 MG TABLET GT SCH (08:46)
[2019-12-10] MEDS ORDERED: CARVEDILOL 12.5 MG TABLET PO SCH (09:00)
[2019-12-10] MEDS ORDERED: AMLODIPINE BESYLATE 5 MG TABLET PO SCH (09:00)
[2019-12-10] MEDS ORDERED: AMLODIPINE BESYLATE 5 MG TABLET GT SCH ×2 (09:00)
[2019-12-10] MEDS ORDERED: hydrALAZINE HCL 50 MG TABLET GT SCH (09:00)
[2019-12-10] MEDS ORDERED: hydrALAZINE HCL 50 MG TABLET PO SCH (09:00)
[2019-12-10] MEDS ORDERED: CARVEDILOL 12.5 MG TABLET GT SCH ×3 (09:00)
[2019-12-10] MEDS: VANCOMYCIN 1 GM in IV D5W 250 ML IV SCH (09:22)
[2019-12-10] MEDS: APIXABAN 5 MG TABLET GT SCH ×2 (09:26→17:18)
[2019-12-10] MEDS: ISOSORBIDE DINITRATE (10MG) 10 MG TABLET GT SCH ×2 (09:31→17:18)
[2019-12-10] MEDS: Z GUARD REMEDY 2 OZ OINT TP SCH (09:31)
[2019-12-10 16:00] VITALS: BP 151/89
--- NOTE | 2019-12-10 16:14 | NUR ---
RN OPENING NOTE: RECEIVED PATIENT IN BED THIS MORNING RESTING IN BED. NO ACUTE DISTRESS NOTED. PATIENT IS ALERT BUT APHASIC. BED REST. JONES CATHETER IN PLACE, DRAINING WELL. PATIENT IS NPO ON GT FEEDING, TOLERATING WELL, LOW RESIDUAL. IV 18G ON RFA, FLUSHING WELL, C/D/I. BREATH SOUNDS CLEAR UPON AUSCULTATION. O2 3L/MIN VIA NC. SAFETY MEASURES IMPLEMENTED. CALL LIGHT IS WITHIN REACH. BED IN LOWEST POSITION WITH SIDE RAILS UP X2. WILL CONTINUE TO MONITOR PATIENT FOR ANY CHANGES.
--- NOTE | 2019-12-10 17:15 | NUR ---
RN CLOSING NOTES PATIENT HAS BEEN DISCHARGED TO [facility]. REPORT GIVEN TO MIREYA ACOSTA. EXITCARE WAS UTILIZED DURING DC PROCESS, JONES CATH LEFT INTACT. FAMILY NOTIFIED OF PATIENTS DEPARTURE. PT LEFT VIA EMT. VITAL SIGNS WERE STABLE. PATIENT REFUSED FOLLOWUP SACRAL PICTURES.
[2019-12-10 17:18] VITALS: BP 154/85
== END 2019-12-10 18:34 | DRG 222 ==
LOC: ER 07:07 → ICU 10:17 → TELE1 12-08 12:47 → MEDSG1 12-09 09:05
PROVIDERS: ADMIT Internal Medicine; ATTEND Internal Medicine
PROC: 0DH60UZ Insertion of Feeding Device into Stomach, Open Approach (ICD-10-PCS; 2019-12-06)
PROC: 30233N1 Transfusion of Nonautologous Red Blood Cells into Peripheral Vein, Percutaneous Approach (ICD-10-PCS; principal; 2019-12-09)
DX: K94.22 Gastrostomy infection (principal); K65.9 Peritonitis, unspecified; N17.9 Acute kidney failure, unspecified; L89.159 Pressure ulcer of sacral region, unspecified stage; I82.402 Acute embolism and thrombosis of unspecified deep veins of left lower extremity; D69.6 Thrombocytopenia, unspecified; E86.0 Dehydration; L03.311 Cellulitis of abdominal wall; D64.9 Anemia, unspecified; E11.9 Type 2 diabetes mellitus without complications; E78.5 Hyperlipidemia, unspecified; I25.10 Atherosclerotic heart disease of native coronary artery without angina pectoris; R13.10 Dysphagia, unspecified; Z79.82 Long term (current) use of aspirin; Z79.4 Long term (current) use of insulin; I69.320 Aphasia following cerebral infarction; N18.9 Chronic kidney disease, unspecified; I12.9 Hypertensive chronic kidney disease with stage 1 through stage 4 chronic kidney disease, or unspecified chronic kidney disease; I69.391 Dysphagia following cerebral infarction; Z95.5 Presence of coronary angioplasty implant and graft
CPT/HCPCS: 31720; 36415; 36600; 71045-TC; 74018; 80048-TC; 80076-TC; 80202-TC; 82803-TC; 82962-TC; 83690-TC; 83735-TC; 84100-TC; 84484-TC; 85025-TC; 85730-TC; 86850-TC; 86921-TC; 87040-TC; 87081-TC; 93970-TC; 94002-TC; 94003-TC; 94799-TC; A4216; C9113; G0378; J0690; J1644; J1815; J2250; J2405; J2543; J3370; J3475; J3490; J7030; J7050; J7060; P9016-BL; Q9963

== ENCOUNTER 2020-06-05 15:55 | Inpatient (IN) | payer OTHER ==
[2020-06-05] VITALS (7 sets, daily range): BP systolic 78–105; BP diastolic 50–71
[~2020-06-05] VITALS: Ht 167.6 cm; Wt 83.0 kg
[~2020-06-05 15:55] MED LIST: ACET-868 GT; AMIN30LI2 GT; ASPI-1169 GT; ATOR40TA GT; BECL10.62 IH; BISA10SU11 RC; CARV12.52 GT; CHOL200026 GT; CLON1PAT2 TD; CLOP75TA15 GT; DEXT1TAB29 GT; DOCU-141 GT; FAMO20TA8 GT; FLUC200T GT; GLUC1KIT IM; HYDR-4077 GT; INSU100V3 SQ; INSU100V7 SQ; IPRA3AMP23 IH; ISOS10TA8 GT; KRIL1CAP GT; LEVA0.31 IH; LOSA25TA27 GT; MAGN400O6 GT; MELA3TAB41 GT; NA P133E RC; NICO-676 TD; NITR0.4T48 SL; NYST5ORA MM; SENN-261 GT; TIOT18CA3 IH
[2020-06-05] MEDS ORDERED: ACETAMINOPHEN ES 500 MG TABLET ONE (16:18)
--- NOTE | 2020-06-05 16:20 | NUR ---
mother felipe left contact # [phone]
[2020-06-05 16:28] LABS: BASOPHILS % (AUTO) 0.2 % (0.0-2.0); HEMATOCRIT 28 % (39-51); HEMOGLOBIN 9.2 g/dL (13.5-17.5); LYMPHOCYTES # (AUTO) 0.2 /CMM (0.8-4.8); LYMPHOCYTES % (AUTO) 8.1 % (20.0-44.0); MEAN CORPUSCULAR HGB CONC 33 g/dl (31.0-36.0); MEAN CORPUSCULAR VOLUME 86 fL (80-96); MONOCYTES % (AUTO) 0.5 % (2.0-12.0); NEUTROPHILS # (AUTO) 2.5 /CMM (1.8-8.9); NEUTROPHILS % (AUTO) 90.2 % (43.0-81.0); RED BLOOD CELL COUNT(AUTO) 3.27 MIL/uL (4.5-6.0); WHITE BLOOD COUNT (AUTO) 2.8 K/uL (4.3-11.0)
[2020-06-05] MEDS ORDERED: IV NS 0.9% 1,000 ML IV ONE ×2 (16:30→17:00)
[2020-06-05] MEDS ORDERED: ACETAMINOPHEN 650 MG/20.3 ML UDC GT ONE (16:30)
[2020-06-05 16:36] LABS: CALCIUM, SERUM 9.6 mg/dL (8.5-10.1); CARBON DIOXIDE 24 mmol/L (21-32); CHLORIDE 103 mmol/L (98-107); CREATININE 2.8 mg/dL (0.6-1.3); GLUCOSE 135 mg/dL (74-106); SODIUM SERUM 140 mmol/L (136-145); UREA NITROGEN, BLOOD 71 mg/dL (7-18)
[2020-06-05 16:49] LABS: ALANINE AMINOTRANSFERASE 31 U/L (12-78); ALBUMIN 3.1 g/dL (3.4-5.0); ALKALINE PHOSPHATASE 224 U/L (46-116); ASPARTATE AMINOTRANSFERASE 40 U/L (15-37); B-TYPE NATRIURETIC PEPTIDE 2894 PG/ML (0-125); BILIRUBIN,TOTAL 0.5 mg/dL (0.2-1.0); TOTAL PROTEIN, SERUM 7.1 g/dL (6.4-8.2)
--- NOTE | 2020-06-05 16:55 | NUR ---
GAVE MOVE SHEET AND CLINICALS TO ADMITTING
[2020-06-05] MEDS ORDERED: PANTOPRAZOLE 80 MG in IV NS 0.9% 500 ML IV PRN (17:00)
[2020-06-05] MEDS ORDERED: PANTOPRAZOLE 80 MG in IV NS 0.9% 100 ML IV ONE (17:00)
[2020-06-05] MEDS ORDERED: PIPERACILLIN /TAZOBACTAM 2.25 G in IV D5W 50 ML IV ONE (17:00)
--- NOTE | 2020-06-05 17:00 | NUR ---
KIMBERLYN FROM [facility]. TO ER BED 6. AWAKE, ALERT AND CONFUSED. NON VERBAL. BROUGHT IN FOR FEVER AND DESAT. PER REPORT, PT HAVE A FEVER OF 104. AND O2 SAT NOTED IN THE 80%S. PT IS PRESENTED DIAPHORETIC. PT IS NOTED WITH HEMATURIA WHICH IS NOTED FROM HIS JONES CATH. UPON CHECKING PLACEMENT OF GT, NOTED BROWN RESIDUAL. PT WAS NOTED WITH ORAL TEMP OF 103.6. MD WAS AT THE BEDSIDE FOR EVAL. ORDERS RECEIVED NOTED AND CARRIED OUT. PT IS ON MONITOR
[2020-06-05 17:09] LABS: D-DIMER 3.48 mg/L(FEU (0.17-0.50)
--- NOTE | 2020-06-05 17:10 | NUR ---
CALLED FACILITY PER ORDER TO ASK WHEN LAST ELIQUIS AND PLAVIX GIVEN. ELIQUIS 5MG LAST GIVEN 06/05/20 0900 AND PLAVIX 75MG 06/04/20 1700, SPOKE WITH JEWELS, NURSE. PER JEWELS, PT HAS BEEN ON MONITOR FOR HEMATURIA. MADE AWARE.
[2020-06-05 17:14] LABS: LEUKOCYTE ESTERASE ,URINE TRACE (NEGATIVE); PH,URINE 8.5 (5.0-8.0); PROTEIN,URINE 3+ mg/dl (NEGATIVE); UROBILINOGEN,URINE 0.2 EU/dL (0.2)
[2020-06-05 17:15] LABS: BILIRUBIN,URINE SMALL (NEGATIVE); BLOOD, URINE 3+ Ery/uL (NEGATIVE); UGLUCOSE 100 MG/DL mg/dL (NEGATIVE)
[2020-06-05 17:18] LABS: APPEARANCE,URINE BLOODY (CLEAR); COLOR,URINE RED (YELLOW); KETONES,URINE NEGATIVE (NEGATIVE); NITRITE, URINE NEGATIVE (NEGATIVE)
[2020-06-05 17:19] LABS: BACTERIA,URINE None seen /HPF (None Seen); RBC,URINE TOO NUMEROUS TO COUN /HPF (0-2); SQUAMOUS EPITHELIAL CELL,UR Few /HPF (None Seen)
--- NOTE | 2020-06-05 17:20 | NUR ---
PAGED DR SINGH
[2020-06-05 17:39] LABS: BAND % (MANUAL) 16 % (0.0-5.0); EOSINOPHILS % (MANUAL) 1 % (0-4); LYMPHOCYTES % (MANUAL) 7 % (16-48); MONOCYTES % (MANUAL) 2 % (0-11.0); NEUTROPHILS % (MANUAL) 74 (42-76)
[2020-06-05 17:44] LABS: PLATELET COUNT (AUTO) 80 /CMM (150-450)
[2020-06-05] MEDS ORDERED: VIT500LI GT (17:45)
[2020-06-05] MEDS ORDERED: LACT1TAB22 GT (17:45)
[2020-06-05] MEDS ORDERED: MULT9LIQ6 GT (17:45)
[2020-06-05] MEDS ORDERED: ROSU40TA GT (17:45)
[2020-06-05] MEDS ORDERED: FERR220E2 GT (17:45)
[2020-06-05] MEDS ORDERED: EPOE40002 IJ (17:45)
[2020-06-05] MEDS ORDERED: CEFT1VIA15 IV (17:45)
[2020-06-05] MEDS ORDERED: QUET25TA GT (17:45)
[2020-06-05] MEDS ORDERED: HYDR25TA4 GT (17:45)
[2020-06-05] MEDS ORDERED: LABE100T5 GT (17:45)
[2020-06-05] MEDS ORDERED: AMLO10TA7 GT (17:45)
[2020-06-05] MEDS ORDERED: LORA-258 GT (17:45)
[2020-06-05] MEDS ORDERED: TAMS-12 GT (17:45)
[2020-06-05] MEDS ORDERED: APIX5TAB GT (17:45)
[2020-06-05] MEDS ORDERED: METF-440 GT (17:45)
[2020-06-05] MEDS ORDERED: CLON0.1T GT (17:45)
[2020-06-05] MEDS ORDERED: SULF1TAB48 GT (17:45)
[2020-06-05] MEDS ORDERED: LORA2VIA11 IM (17:45)
[2020-06-05] MEDS ORDERED: INSU100V36 SQ (17:45)
[2020-06-05] MEDS ORDERED: NUT.237L31 GT ×2 (17:45)
[2020-06-05] MEDS ORDERED: CAND16TA13 GT (17:45)
[2020-06-05] MEDS ORDERED: IV D5/0.45 NACL 1,000 ML IV PRN (17:49)
--- NOTE | 2020-06-05 17:49 | NUR ---
PHARMACY CALLED FOR MEDS
[2020-06-05] MEDS ORDERED: ACETAMINOPHEN 325 MG TABLET PO PRN (18:00)
[2020-06-05] MEDS ORDERED: ZOLPIDEM TARTRATE 5 MG TABLET PO PRN (18:00)
[2020-06-05] MEDS ORDERED: MAGNESIUM HYDROXIDE 30 ML UDC PO PRN (18:00)
[2020-06-05] MEDS ORDERED: ONDANSETRON HCL/PF 4 MG/2 ML VIAL IVP PRN (18:00)
[2020-06-05] MEDS ORDERED: MAG HYDROX/AL HYDROX/SIMETH 30 ML UDC PO PRN (18:00)
[2020-06-05] MEDS ORDERED: Z GUARD REMEDY 2 OZ OINT TP PRN (18:00)
--- NOTE | 2020-06-05 18:02 | NUR ---
CALLED NURSING SUP FOR TELE BED
[2020-06-05 18:14] LABS: FERRITIN 214 ng/mL (8-388)
--- NOTE | 2020-06-05 18:23 | NUR ---
pt to ct on bran
[2020-06-05 19:55] LABS: BASOPHILS % (AUTO) 0.1 % (0.0-2.0); EOSINOPHILS % (AUTO) 0.2 % (0.0-6.0); HEMATOCRIT 24 % (39-51); HEMOGLOBIN 7.6 g/dL (13.5-17.5); LYMPHOCYTES # (AUTO) 0.4 /CMM (0.8-4.8); LYMPHOCYTES % (AUTO) 2.5 % (20.0-44.0); MEAN CORPUSCULAR HGB CONC 32 g/dl (31.0-36.0); MEAN CORPUSCULAR VOLUME 87 fL (80-96); MONOCYTES # (AUTO) 0.3 /CMM (0.1-1.30); MONOCYTES % (AUTO) 2.3 % (2.0-12.0); NEUTROPHILS # (AUTO) 13.5 /CMM (1.8-8.9); NEUTROPHILS % (AUTO) 94.9 % (43.0-81.0); PLATELET COUNT (AUTO) 68 /CMM (150-450); RED BLOOD CELL COUNT(AUTO) 2.76 MIL/uL (4.5-6.0)
--- NOTE | 2020-06-05 20:16 | NUR ---
nursing sup called for bed
[2020-06-05 20:20] LABS: WHITE BLOOD COUNT (AUTO) 14.2 K/uL (4.3-11.0)
[2020-06-05 20:21] LABS: BILIRUBIN,DIRECT 0.2 mg/dL (0.0-0.2)
--- NOTE | 2020-06-05 21:09 | NUR ---
report given to miranda le for nuno
--- NOTE | 2020-06-05 21:15 | NUR ---
urine output: 1350ml dark red
[2020-06-05] MEDS ORDERED: VANCOMYCIN 1.5 GM in IV D5W 500ml IV ONE (21:30)
--- NOTE | 2020-06-05 21:45 | NUR ---
PT TRANSPORTED TO UNIT ON GURNEY WITH EMT AND RN AT BEDSIDE W/ ACLS PROTOCOL. NAD NOTED DURING TRANSPORT.
[2020-06-05] MEDS ORDERED: VANCOMYCIN 1 GM VIAL ONE (21:52)
--- NOTE | 2020-06-05 23:00 | NUR ---
RN NOTES 2140 AM - ADMITTED PATIENT FROM ER AWAKE , ALERT TO NAME, NONVERBAL ABLE TO TRACK EYES. 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 WITH O2 4LPM VIA NC SATURATION 98%. PATIETN DIAGNOSED WITH HEMATURIA AD PNA. WT MULTIPLE MEDICAL HISTORY (SEE PMHX) NA NEGATIVE FOR COVID. WITH GT INTACT AND PATENT WITH 5 CC RESIDUAL, CLAMPED IV SITE ON RFA G 18 AND LAC G 18 C/D/I WITH PROTONIX DRIP ORDERED. PATIENT HAS 3 WAY JONES CATH PRESENT WITH BRIGHT RED COLOR URINE OUTPUT. MD AWARE KEPT PT CLEAN AND COMFORTABLE IN BED. ANCA CONT. TO MONITOR
[2020-06-05] MEDS ORDERED: PIPERACILLIN /TAZOBACTAM 2.25 G VIAL IV ONE (23:20)
[2020-06-05] MEDS: PIPERACILLIN /TAZOBACTAM 2.25 G in IV NS 0.9% 50 ML IV SCH (23:30)
[2020-06-05] MEDS ORDERED: PHENYLEPHRINE 10 MG/ML VIAL ONE (23:36)
[2020-06-05] MEDS: PHENYLEPHRINE 50 MG in IV NS 0.9% 245 ML IV PRN ×2 (23:51→23:53)
[2020-06-06] VITALS (75 sets, daily range): BP systolic 79–161; BP diastolic 42–100
[2020-06-06 05:05] LABS: BASOPHILS % (AUTO) 0.1 % (0.0-2.0); EOSINOPHILS % (AUTO) 0.2 % (0.0-6.0); HEMATOCRIT 25 % (39-51); HEMOGLOBIN 7.8 g/dL (13.5-17.5); LYMPHOCYTES # (AUTO) 1.1 /CMM (0.8-4.8); LYMPHOCYTES % (AUTO) 4.3 % (20.0-44.0); MEAN CORPUSCULAR HGB CONC 31 g/dl (31.0-36.0); MEAN CORPUSCULAR VOLUME 87 fL (80-96); MONOCYTES # (AUTO) 1.5 /CMM (0.1-1.30); NEUTROPHILS # (AUTO) 22.8 /CMM (1.8-8.9); NEUTROPHILS % (AUTO) 89.4 % (43.0-81.0); PLATELET COUNT (AUTO) 66 /CMM (150-450); RED BLOOD CELL COUNT(AUTO) 2.89 MIL/uL (4.5-6.0); WHITE BLOOD COUNT (AUTO) 25.5 K/uL (4.3-11.0)
[2020-06-06 05:19] LABS: CALCIUM, SERUM 8.4 mg/dL (8.5-10.1); CREATININE 2.4 mg/dL (0.6-1.3); MAGNESIUM 2.3 mg/dL (1.8-2.4); PHOSPHORUS 4.1 mg/dL (2.5-4.9); POTASSIUM 3.8 mmol/L (3.5-5.1)
[2020-06-06 05:24] LABS: THYROID STIMULATING HORMONE 0.328 uIU/mL (0.358-3.74)
[2020-06-06 05:46] LABS: BAND % (MANUAL) 33 % (0.0-5.0); LYMPHOCYTES % (MANUAL) 3 % (16-48); NEUTROPHILS % (MANUAL) 60 (42-76)
[2020-06-06 05:47] LABS: MONOCYTES % (MANUAL) 4 % (0-11.0)
[2020-06-06] MEDS ORDERED: PIPERACILLIN /TAZOBACTAM 2.25 G VIAL IV ONE (06:00)
[2020-06-06] MEDS: PIPERACILLIN /TAZOBACTAM 2.25 G in IV NS 0.9% 50 ML IV SCH (06:14)
[2020-06-06] MEDS ORDERED: FEE PK DOSING 1 MIN EA MC ONE (07:02)
--- NOTE | 2020-06-06 07:15 | NUR ---
RN NOTES ASLEEP WELL THROUGHOUT THE SHIFT, DENIES PAIN. NO S/S OF BLEEDING NOTED. O2 TITRATED TO 2LPM VIA NC SATURATION REMAINED 98-100%. AFEBRILE. TMAX 99.4 LAST TEMPERATURE CHECKED WAS 97.6 DEG FHARENHEIGHT. NO HEMATURIA NOW,JONES CATH WITH JEFFY COLOR URINE. GT WITH CLEAR LIQUID OUTPUT. NO SIGNIFICANT CHANGES THROUGHOUT THE SHIFT.
--- NOTE | 2020-06-06 07:20 | NUR ---
RN INITIAL NOTES RECEIVED PT AWAKE, NON-VERBAL. UNABLE TO FOLLOW COMMANDS. ON 02 VIA NC AT 2LPM. NO RESPIRATORY DISTRESS NOTED. NO SOB NOTED. NO SIGNS OF PAIN NOTED. IV LINES IN PLACE. IVF INFUSING. ON VEE AT 0.2MCG/KG/MIN. WILL TITRATE ACCORDINGLY. GTUBE IN PLACE, CLAMPED. JONES IN PLACE. NO HEMATURIA NOTED. WILL CONTINUE TO MONITOR
[2020-06-06] MEDS ORDERED: Z GUARD REMEDY 2 OZ OINT TP PRN (08:00)
[2020-06-06] MEDS ORDERED: IV NS 0.9% 1,000 ML IV PRN (08:18)
[2020-06-06] MEDS ORDERED: PANTOPRAZOLE 40 MG VIAL IV SCH (09:00)
[2020-06-06] MEDS: IV NS 0.9% 1,000 ML IV PRN ×2 (10:06→14:44)
[2020-06-06] MEDS ORDERED: PIPERACILLIN /TAZOBACTAM 2.25 G in IV D5W 50 ML IV SCH (12:00)
--- NOTE | 2020-06-06 13:00 | NUR ---
RN NOTES SEEN AND EXAMINED BY DR LOJA. AWARE OF LAB VALUES AND IMAGING STUDIES. NO SIGNS OF ACTIVE BLEEDING NOTED. HEMATURIA IMPROVED. ON VEE DRIP, WILL TITRATE ACCORDINGLY. WILL CLOSELY MONITOR
[2020-06-06] MEDS: PHENYLEPHRINE 50 MG in IV NS 0.9% 245 ML IV PRN (14:45)
[2020-06-06] MEDS: MEROPENEM 500 MG in IV NS 0.9% 100 ML IV SCH (17:00)
[2020-06-06] MEDS: PANTOPRAZOLE 40 MG VIAL IV SCH (17:00)
--- NOTE | 2020-06-06 18:48 | NUR ---
RN CLOSING NOTES NO SIGNIFICANT CHANGES NOTED. NO RESPIRATORY DISTRESS NOTED. NO SOB NOTED. VEE OFF AT 1700. KEPT CLEAN AND DRY. REPOSITIONING Q2 WILL ENDORSE FOR CONTINUITY OF CARE.
--- NOTE | 2020-06-06 19:30 | NUR ---
RN NOTES RECEIVED PATIENT IN BED AWAKE, UNABLE TO FOLLOW COMMANDS. BREATHING NORMAL NO SOB NOTED. RESPIRATION EVEN NON LABORED. TELE MONITOR SHOWS ST. GT CLAMPED. F/C IN PLACE, INTACT NO HEMATURIA NOTED. IV SITE RAC INTACT FLUSHES WELL. SAFETY MEASURES IN PLACE, SIDE RAILS UP,CALL LIGHT WITHIN REACH. WILL CONT TO MONITOR FOR LIANET.
[2020-06-06] MEDS: LORAZEPAM INJ 2 MG/ML VIAL IV PRN (20:18)
[2020-06-06 20:29] LABS: BASOPHILS # (AUTO) 0.1 /CMM (0.0-0.2); BASOPHILS % (AUTO) 0.5 % (0.0-2.0); EOSINOPHILS % (AUTO) 0.7 % (0.0-6.0); HEMATOCRIT 26 % (39-51); HEMOGLOBIN 8.4 g/dL (13.5-17.5); LYMPHOCYTES # (AUTO) 1.3 /CMM (0.8-4.8); LYMPHOCYTES % (AUTO) 7.2 % (20.0-44.0); MEAN CORPUSCULAR HGB CONC 32 g/dl (31.0-36.0); MEAN CORPUSCULAR VOLUME 86 fL (80-96); MONOCYTES # (AUTO) 0.8 /CMM (0.1-1.30); MONOCYTES % (AUTO) 4.4 % (2.0-12.0); NEUTROPHILS # (AUTO) 15.8 /CMM (1.8-8.9); NEUTROPHILS % (AUTO) 87.2 % (43.0-81.0); PLATELET COUNT (AUTO) 68 /CMM (150-450); RED BLOOD CELL COUNT(AUTO) 3.07 MIL/uL (4.5-6.0); WHITE BLOOD COUNT (AUTO) 18.1 K/uL (4.3-11.0)
[2020-06-06] MEDS ORDERED: VANCOMYCIN 1 GM in IV D5W 250 ML IV SCH (21:00)
[2020-06-06 21:05] LABS: BAND % (MANUAL) 7 % (0.0-5.0); EOSINOPHILS % (MANUAL) 5 % (0-4); LYMPHOCYTES % (MANUAL) 4 % (16-48); MONOCYTES % (MANUAL) 4 % (0-11.0); NEUTROPHILS % (MANUAL) 80 (42-76)
[2020-06-07] VITALS (20 sets, daily range): BP systolic 74–190; BP diastolic 35–123
--- NOTE | 2020-06-07 | NUR ---
RN NOTES PATIENT JUMPING OUT FROM BED, UNABLE TO FOLLOW COMMANDS.TRIED TO CONVINCES HIM BUT UNABLE TO FOLLOW DIRECTIONS. MD NOTIFIED AND RECEIVED NEW ORDER FOR 1:1 SITTER. NOTED AND CARRIED OUT BY ED CHARGE NURSE. WILL CONT TO MONITOR FOR LIANET.
[2020-06-07] MEDS: IV NS 0.9% 1,000 ML IV PRN ×3 (01:28→14:05)
[2020-06-07] MEDS: LORAZEPAM INJ 2 MG/ML VIAL IV PRN (02:07)
[2020-06-07 04:21] LABS: BASOPHILS % (AUTO) 0.3 % (0.0-2.0); EOSINOPHILS % (AUTO) 1.2 % (0.0-6.0); HEMATOCRIT 27 % (39-51); HEMOGLOBIN 8.7 g/dL (13.5-17.5); LYMPHOCYTES # (AUTO) 1.3 /CMM (0.8-4.8); LYMPHOCYTES % (AUTO) 7.9 % (20.0-44.0); MEAN CORPUSCULAR HGB CONC 32 g/dl (31.0-36.0); MEAN CORPUSCULAR VOLUME 86 fL (80-96); MONOCYTES % (AUTO) 6.1 % (2.0-12.0); NEUTROPHILS # (AUTO) 13.8 /CMM (1.8-8.9); NEUTROPHILS % (AUTO) 84.5 % (43.0-81.0); PLATELET COUNT (AUTO) 69 /CMM (150-450); RED BLOOD CELL COUNT(AUTO) 3.14 MIL/uL (4.5-6.0); WHITE BLOOD COUNT (AUTO) 16.3 K/uL (4.3-11.0)
[2020-06-07 04:48] LABS: ALBUMIN 2.7 g/dL (3.4-5.0); BILIRUBIN,TOTAL 0.4 mg/dL (0.2-1.0); CREATININE 1.4 mg/dL (0.6-1.3); PHOSPHORUS 1.7 mg/dL (2.5-4.9); POTASSIUM 3.2 mmol/L (3.5-5.1); TOTAL PROTEIN, SERUM 6.6 g/dL (6.4-8.2)
[2020-06-07] MEDS: MEROPENEM 500 MG in IV NS 0.9% 100 ML IV SCH ×2 (05:05→16:13)
[2020-06-07 05:25] LABS: BAND % (MANUAL) 7 % (0.0-5.0)
[2020-06-07 05:26] LABS: EOSINOPHILS % (MANUAL) 1 % (0-4); LYMPHOCYTES % (MANUAL) 9 % (16-48); MONOCYTES % (MANUAL) 5 % (0-11.0); NEUTROPHILS % (MANUAL) 78 (42-76)
--- NOTE | 2020-06-07 07:02 | NUR ---
RN NOTES PATIENT REMAINS ON IV FLUIDS NO S/S OF DISTRESS NOTED. BREATHING NORMAL NO SOB NOTED. ON ROOM AIR SATURATING 92-95%. TELE MONITOR READING ST. GT INTACT 10CC RESIDUAL NOTED. F/C INTACT URINE RUNNING WELL TO GRAVITY NO HEMATURIA NOTED. DURING SHIFT PATIENT WAS TRYING TO PULL HIS GT, F/C NEW ORDER RECEIVED FOR BUE SOFT RESTRAINS AND ATIVAN. RESTRAINS ARE IN PLACE FOR SAFETY RELEASED AND CHECKED FOR CIRCULATION AND PULSE. SAFETY MEASURES IN PLACE, CALL LIGHT WITHIN REACH. WILL ENDORSE TO AM NURSE FOR LIANET.
--- NOTE | 2020-06-07 07:20 | NUR ---
RN INITIAL NOTES RECEIVED PT AWAKE, A/O X1 WITH PERIODS OF CONFUSION. ON ROOM AIR. NO RESPIRATORY DISTRESS NOTED. NO SOB NOTED. DENIES ANY PAIN. IV LINE IN PLACE. IVF INFUSING. JONES IN PLACE. NO HEMATURIA NOTED. BLE ELEVATED. 1:1 SITTER. WILL CONTINUE TO MONITOR
[2020-06-07] MEDS: PANTOPRAZOLE 40 MG VIAL IV SCH ×2 (09:22→16:13)
[2020-06-07] MEDS: POTASSIUM CHLORIDE 20 MEQ TAB.PRT.SR PO SCH ×3 (10:19→12:22)
--- NOTE | 2020-06-07 10:40 | NUR ---
RN NOTES PT TRANSFERRED TO [facility]-2. PT A/OX1. NO RESPIRATORY DISTRESS NOTED. NO SOB NOTED. DENIES ANY PAIN. PT STABLE. KARLA CAGLE TOOK OVER PT'S CARE.
--- NOTE | 2020-06-07 10:45 | NUR ---
RN/BERTRAND RECEIVED PATIENT IN BED. NO ACUTE DISTRESS NOTED. PATIENT ALERT & ORIENTED X 1 WITH CONFUSION. PATIENT ON ROOM AIR, SATURATING WELL AT 96%. PATIENT G-TUBE IN PLACE, INTACT, PATENT, FLUSHED WELL. PATIENT LEFT FOREARM IV ACCESS INTACT, PATENT, FLUSHED WELL. BILATERAL SOFT WRIST RESTRAINTS ON DUE TO PATIENT PULLING OUT LINES AND INTERFERING WITH CARE. NO ACUTE DISTRESS NOTED. SITTER IN PLACE. PATIENT SAFETY MAINTAINED. CALL LIGHT WITHIN REACH. WILL CONTINUE TO MONITOR. VITAL SIGNS T- 98.3, HR 99, RR 17, O2SAT 96%, BP 132/96
--- NOTE | 2020-06-07 11:20 | NUR ---
WOUND CARE CONSULT: SEEN PATIENT AT BEDSIDE,PATIENT PRESENTS IASD ON SACRAL .PRESENT ON ADMISSION, CURRENT JER CORE IS 1O ,ISOFLEX WHIT BED TO BE PLACE,HAS JONES CATH AT THIS TIME ,RECOMMENDATION MADE FOR SKIN PROTECTION AND CARE ,DISCUSSED WITH NURSING STAFF, IN AGREEMENT WITH PLAN OF CARE, WILL SEE PRN
[2020-06-07] MEDS: VANCOMYCIN 1.25 GM in IV D5W 250 ML IV SCH (14:05)
[2020-06-07] MEDS: POTASSIUM PHOSPHATE MM 7.5 MMOL in IV NS 0.9% 100 ML IV SCH ×2 (14:51→17:41)
--- NOTE | 2020-06-07 18:38 | NUR ---
PATIENT IN BED. NO ACUTE DISTRESS NOTED. PATIENT ALERT & ORIENTED X 1 WITH CONFUSION. PATIENT ON ROOM AIR, SATURATING WELL AT 96%. PATIENT G-TUBE IN PLACE, INTACT, PATENT, FLUSHED WELL. PATIENT LEFT FOREARM IV ACCESS INTACT, PATENT, FLUSHED WELL. PATIENT LEFT UPPER ARM IV ACCESS INTACT, PATENT, FLUSHED WELL. BILATERAL SOFT WRIST RESTRAINTS ON DUE TO PATIENT PULLING OUT LINES AND INTERFERING WITH CARE. NO ACUTE DISTRESS NOTED. SITTER IN PLACE. PATIENT SAFETY MAINTAINED. CALL LIGHT WITHIN REACH. WILL ENDORSE PLAN OF CARE TO ONCOMING NURSE FOR CONTINUITY OF CARE.
[2020-06-07 23:29] LABS: BASOPHILS % (AUTO) 0.4 % (0.0-2.0); EOSINOPHILS % (AUTO) 1.6 % (0.0-6.0); HEMATOCRIT 33 % (39-51); HEMOGLOBIN 10.4 g/dL (13.5-17.5); LYMPHOCYTES # (AUTO) 1.2 /CMM (0.8-4.8); LYMPHOCYTES % (AUTO) 9.5 % (20.0-44.0); MEAN CORPUSCULAR HGB CONC 32 g/dl (31.0-36.0); MEAN CORPUSCULAR VOLUME 86 fL (80-96); MONOCYTES # (AUTO) 0.7 /CMM (0.1-1.30); MONOCYTES % (AUTO) 5.9 % (2.0-12.0); NEUTROPHILS # (AUTO) 10.2 /CMM (1.8-8.9); NEUTROPHILS % (AUTO) 82.6 % (43.0-81.0); PLATELET COUNT (AUTO) 77 /CMM (150-450); RED BLOOD CELL COUNT(AUTO) 3.83 MIL/uL (4.5-6.0); WHITE BLOOD COUNT (AUTO) 12.3 K/uL (4.3-11.0)
[2020-06-08 00:07] LABS: BAND % (MANUAL) 13 % (0.0-5.0); LYMPHOCYTES % (MANUAL) 8 % (16-48); MONOCYTES % (MANUAL) 5 % (0-11.0); NEUTROPHILS % (MANUAL) 75 (42-76)
[2020-06-08] MEDS: LORAZEPAM INJ 2 MG/ML VIAL IV PRN (00:29)
[2020-06-08 04:00] VITALS: BP 155/105
[2020-06-08] MEDS: HYDROCODONE/APAP 5/325MG 1 EACH TABLET PO PRN (05:26)
[2020-06-08] MEDS: MEROPENEM 500 MG in IV NS 0.9% 100 ML IV SCH (05:27)
[2020-06-08 06:06] LABS: BASOPHILS % (AUTO) 0.5 % (0.0-2.0); EOSINOPHILS % (AUTO) 1.7 % (0.0-6.0); HEMATOCRIT 29 % (39-51); HEMOGLOBIN 9.5 g/dL (13.5-17.5); LYMPHOCYTES % (AUTO) 9.8 % (20.0-44.0); MEAN CORPUSCULAR HGB CONC 33 g/dl (31.0-36.0); MEAN CORPUSCULAR VOLUME 84 fL (80-96); MONOCYTES # (AUTO) 0.7 /CMM (0.1-1.30); MONOCYTES % (AUTO) 6.4 % (2.0-12.0); NEUTROPHILS # (AUTO) 8.5 /CMM (1.8-8.9); NEUTROPHILS % (AUTO) 81.6 % (43.0-81.0); PLATELET COUNT (AUTO) 68 /CMM (150-450); RED BLOOD CELL COUNT(AUTO) 3.45 MIL/uL (4.5-6.0); WHITE BLOOD COUNT (AUTO) 10.5 K/uL (4.3-11.0)
[2020-06-08 06:28] LABS: CALCIUM, SERUM 9.1 mg/dL (8.5-10.1); CREATININE 1.1 mg/dL (0.6-1.3); POTASSIUM 3.6 mmol/L (3.5-5.1)
--- NOTE | 2020-06-08 07:09 | NUR ---
RN notes Patient in bed, awake, restless, alert, confused. Noted moderate amount of blood coming out of the penis. Vital signs wnl. Remains afebrile with skin warm and dry to touch. Will endorse to next shift for continuity of care.
[2020-06-08 08:00] VITALS: BP 167/100
[2020-06-08 08:44] LABS: BAND % (MANUAL) 1 % (0.0-5.0); EOSINOPHILS % (MANUAL) 1 % (0-4); LYMPHOCYTES % (MANUAL) 9 % (16-48); MONOCYTES % (MANUAL) 3 % (0-11.0); NEUTROPHILS % (MANUAL) 86 (42-76)
[2020-06-08] MEDS: PANTOPRAZOLE 40 MG VIAL IV SCH ×2 (09:11→17:06)
[2020-06-08] MEDS: VANCOMYCIN 1.25 GM in IV D5W 250 ML IV SCH (09:12)
--- NOTE | 2020-06-08 10:03 | NUR ---
JUVENCIO DAVILA AWARE OF PATIENT'S PROCALCITONIN LEVELS OF 15.84
--- NOTE | 2020-06-08 10:36 | NUR ---
RN OPENING NOTE: RECEIVED PATIENT IN BED THIS MORNING. PATIENT IS ALERT BUT CONFUSED, DOES NOT RESPOND TO QUESTIONS BEING ASKED. PATIENT IS SATING WELL ON ROOM AIR. PATIENT HAS JONES, DRAINING WELL. ;SIVA PORTER, C/D/I, FLUSHING WELL, NO SIGNS OF COMPLICATIONS NOTED. SAFETY MEASURES IMPLEMENTED, BED IN LOWEST POSITION, LOCKED, SIDE RAILS UP, CALL LIGHT WITHIN REACH. WILL CONTINUE TO MONITOR PATIENT FOR CHANGES.
--- NOTE | 2020-06-08 10:46 | NUR ---
JUVENCIO DAVILA AWARE OF PATIENT'S SLIT URINARY MEATUS.
--- NOTE | 2020-06-08 11:46 | NUR ---
GIOVANNI METER ENGINEER AWARE PATIENT HAS CRE IN BLOOD
[2020-06-08] MEDS ORDERED: AMPICILLIN 3 GM in IV NS 0.9% 100 ML IV SCH (12:30)
--- NOTE | 2020-06-08 12:38 | NUR ---
SPOKE TO JUVENCIO DAVILA, STATED IF NO NEW PROCEDURE, WE CAN START TF. NO NEW PROCEDURE. CONTACTED DIETARY IN REGARDS TO TF, LEFT VM, AWAITING CALL BACK. Addendum: 06/08/20 at 1331 by SHERLYN WOODS RN SPOKE TO YUDI, STARTING GLUCERNA 1.2
[2020-06-08] MEDS ORDERED: MEROPENEM 500 MG in IV NS 0.9% 100 ML IV SCH (13:00)
[2020-06-08 13:10] VITALS: BP 145/90
[2020-06-08] MEDS ORDERED: FEE PK DOSING 1 MIN EA MC ONE (13:56)
[2020-06-08] MEDS: AMPICILLIN 2 GM in IV NS 0.9% 100 ML IV SCH ×2 (14:50→20:35)
[2020-06-08 16:00] VITALS: BP 127/93
[2020-06-08] MEDS: GENTAMICIN 450 MG in IV D5W 100 ML IV SCH (16:45)
[2020-06-08] MEDS: GLUCERNA 1.2 1,000 ML BOTTLE NG PRN (17:06)
--- NOTE | 2020-06-08 19:07 | NUR ---
RN CLOSING NOTE: PATIENT REMAINS IN BED. NO SIGNS OF ACUTE DISTRESS NOTED AT THIS TIME. SAFETY MEASURES IMPLEMENTED, BED IN LOWEST POSITION, LOCKED, SIDE RAILS UP, CALL LIGHT WITHIN REACH. WILL ENDORSE TO ONCOMING SHIFT RN FOR CONTINUITY OF CARE.
[2020-06-08 20:00] VITALS: BP 136/86
[2020-06-09] MEDS: AMPICILLIN 2 GM in IV NS 0.9% 100 ML IV SCH ×4 (02:07→20:07)
[2020-06-09 06:30] LABS: BASOPHILS % (AUTO) 0.7 % (0.0-2.0); EOSINOPHILS % (AUTO) 3.3 % (0.0-6.0); HEMATOCRIT 28 % (39-51); HEMOGLOBIN 9.1 g/dL (13.5-17.5); LYMPHOCYTES # (AUTO) 1.3 /CMM (0.8-4.8); MEAN CORPUSCULAR HGB CONC 33 g/dl (31.0-36.0); MEAN CORPUSCULAR VOLUME 86 fL (80-96); MONOCYTES # (AUTO) 0.8 /CMM (0.1-1.30); MONOCYTES % (AUTO) 10.1 % (2.0-12.0); NEUTROPHILS # (AUTO) 5.1 /CMM (1.8-8.9); NEUTROPHILS % (AUTO) 67.9 % (43.0-81.0); PLATELET COUNT (AUTO) 65 /CMM (150-450); RED BLOOD CELL COUNT(AUTO) 3.29 MIL/uL (4.5-6.0); WHITE BLOOD COUNT (AUTO) 7.5 K/uL (4.3-11.0)
[2020-06-09 06:54] LABS: ALBUMIN 2.9 g/dL (3.4-5.0); BILIRUBIN,TOTAL 0.7 mg/dL (0.2-1.0); CALCIUM, SERUM 8.9 mg/dL (8.5-10.1); CREATININE 1.1 mg/dL (0.6-1.3); MAGNESIUM 1.9 mg/dL (1.8-2.4); PHOSPHORUS 3.9 mg/dL (2.5-4.9); POTASSIUM 3.5 mmol/L (3.5-5.1); TOTAL PROTEIN, SERUM 6.8 g/dL (6.4-8.2)
--- NOTE | 2020-06-09 07:52 | NUR ---
RN OPENING NOTES: RECEIVED PT IN BED RESTING. PT IS ON RA 97%. PT IS ON TELE MONITOR NSR PACS. NO SIGNS OF RESPIRATORY DISTRESS, DIFFICULTY BREATHING, OR ANY SIGNS OF PAIN. PT IS ALERT BUT CONFUSED. IV LAC #18 SL, SIVA #20 SL. PTS BED IS IN THE LOWEST POSITION, LOCKED SIDE RAILS UP PER PROTOCOL, CALL LIGHT WITHIN REACH. WILL CONTINUE TO MONITOR.
[2020-06-09] MEDS: PANTOPRAZOLE 40 MG VIAL IV SCH ×2 (08:15→16:49)
[2020-06-09 10:00] VITALS: BP 136/86
[2020-06-09 10:11] LABS: BAND % (MANUAL) 1 % (0.0-5.0); EOSINOPHILS % (MANUAL) 2 % (0-4); LYMPHOCYTES % (MANUAL) 20 % (16-48); MONOCYTES % (MANUAL) 4 % (0-11.0); NEUTROPHILS % (MANUAL) 73 (42-76)
[2020-06-09] MEDS: LORAZEPAM INJ 2 MG/ML VIAL IV PRN (12:48)
--- NOTE | 2020-06-09 13:24 | NUR ---
RN NOTES: PT WAS VERY ANXIOUS/RESTLESS ATIVAN WAS ADMINISTERED.
[2020-06-09] MEDS: GENTAMICIN 450 MG in IV D5W 100 ML IV SCH (16:49)
--- NOTE | 2020-06-09 18:56 | NUR ---
RN CLOSING NOTES: PT IN BED, CONFUSED, NO SIGNS OF RESPIRATORY DISTRESS, DIFFICULTY BREATHIN, NO SIGNS OF PAIN. PT IS ON RA 97%, TELE MON NSR, PACS. IV INTACT WELL FLUSHED, IV LAC #18, SIVA #20. SAFETY MEASURES APPLIED CALL LIGHT WITHIN REACH, WILL ENDORSE TO THE PM NURSE.
--- NOTE | 2020-06-09 19:20 | NUR ---
RN OPENING NOTES: Rec'd pt in bed, confused. On RA O2 WNL. No SOB or respiratory distress noted. IV sites on LAC #18 and SIVA #20 patent and flushed. Dressing c/d/i. FC in place draining urine via gravity. On ENGINE SPECIALIST restraints. Will remove and check circulation per protocol. Safety measures in place. Will continue to monitor. Addendum: 06/09/20 at 2017 by LISA PAYAN RN Has GTF of Glucerna running at 40ml/hr. Tolerating well. Minimal residual noted.
[2020-06-09 20:00] VITALS: BP 147/87
[2020-06-09 20:27] LABS: BASOPHILS % (AUTO) 0.6 % (0.0-2.0); EOSINOPHILS % (AUTO) 2.5 % (0.0-6.0); HEMATOCRIT 27 % (39-51); HEMOGLOBIN 8.8 g/dL (13.5-17.5); LYMPHOCYTES # (AUTO) 1.5 /CMM (0.8-4.8); LYMPHOCYTES % (AUTO) 21.6 % (20.0-44.0); MEAN CORPUSCULAR HGB CONC 33 g/dl (31.0-36.0); MEAN CORPUSCULAR VOLUME 85 fL (80-96); MONOCYTES # (AUTO) 0.8 /CMM (0.1-1.30); MONOCYTES % (AUTO) 11.1 % (2.0-12.0); NEUTROPHILS # (AUTO) 4.4 /CMM (1.8-8.9); NEUTROPHILS % (AUTO) 64.2 % (43.0-81.0); PLATELET COUNT (AUTO) 74 /CMM (150-450); RED BLOOD CELL COUNT(AUTO) 3.17 MIL/uL (4.5-6.0); WHITE BLOOD COUNT (AUTO) 6.8 K/uL (4.3-11.0)
[2020-06-09 20:57] LABS: BAND % (MANUAL) 1 % (0.0-5.0); EOSINOPHILS % (MANUAL) 6 % (0-4); LYMPHOCYTES % (MANUAL) 21 % (16-48); MONOCYTES % (MANUAL) 11 % (0-11.0); NEUTROPHILS % (MANUAL) 61 (42-76)
[2020-06-10] MEDS: AMPICILLIN 2 GM in IV NS 0.9% 100 ML IV SCH ×4 (01:57→19:45)
--- NOTE | 2020-06-10 02:07 | NUR ---
RN NOTE: No residual noted. Increased GTF to 45ml/hr. Will continue to monitor.
[2020-06-10 04:00] VITALS: BP 150/82
[2020-06-10] MEDS: GLUCERNA 1.2 1,000 ML BOTTLE NG PRN (06:00)
--- NOTE | 2020-06-10 06:11 | NUR ---
RN NOTE: Noted w/ 20cc of residual. Increased GTF to 50ml/hr. Will continue to monitor.
[2020-06-10 06:40] LABS: BASOPHILS # (AUTO) 0.1 /CMM (0.0-0.2); BASOPHILS % (AUTO) 0.7 % (0.0-2.0); EOSINOPHILS % (AUTO) 2.9 % (0.0-6.0); HEMATOCRIT 26 % (39-51); HEMOGLOBIN 8.5 g/dL (13.5-17.5); LYMPHOCYTES # (AUTO) 1.5 /CMM (0.8-4.8); LYMPHOCYTES % (AUTO) 19.9 % (20.0-44.0); MEAN CORPUSCULAR HGB CONC 33 g/dl (31.0-36.0); MEAN CORPUSCULAR VOLUME 86 fL (80-96); MONOCYTES # (AUTO) 0.8 /CMM (0.1-1.30); MONOCYTES % (AUTO) 10.9 % (2.0-12.0); NEUTROPHILS # (AUTO) 4.9 /CMM (1.8-8.9); NEUTROPHILS % (AUTO) 65.6 % (43.0-81.0); PLATELET COUNT (AUTO) 78 /CMM (150-450); RED BLOOD CELL COUNT(AUTO) 3.07 MIL/uL (4.5-6.0); WHITE BLOOD COUNT (AUTO) 7.5 K/uL (4.3-11.0)
--- NOTE | 2020-06-10 07:04 | NUR ---
RN CLOSING NOTES: Pt resting in bed A&Ox1, confused. On isolation precautions for R/O Covid. On RA tolerating well. No SOB or respiratory distress noted. No acute changes noted throughout shift. LAC #18 and SIVA #20 patent and flushed. Dressing c/d/i. MAT WEAVER restraints in place. Glucerna infusing at 50ml/hr tolerating well. Reza in place, draining urine with hematuria. Kept clean/dry. All meds administered as ordered. Safety measures in place. Will endorse to AM nurse for LIANET.
[2020-06-10 07:05] LABS: FREE PSA 0.85 ng/mL (0.00-45); PROSTATE SPECIFIC ANTIGEN SCR 7.71 ng/mL (0.00-4.00)
[2020-06-10 07:09] LABS: CREATININE 1.1 mg/dL (0.6-1.3); MAGNESIUM 2.1 mg/dL (1.8-2.4); POTASSIUM 4.2 mmol/L (3.5-5.1)
--- NOTE | 2020-06-10 07:20 | NUR ---
RN OPENING NOTES: Received pt in bed and confused. On Room Air. No SOB or respiratory distress noted. IV sites on LAC #18 and SIVA #20 patent and flushed. Dressing c/d/i. Gtube patent and in place. Feeding of Glucerna 1.2 @ 50mls/hr being tolerated well. No pain noted on patient. Reza catheter in place and draining urine. On Bilateral soft wrist restraints for previous behavior identified. Call light in reach. Bed locked, low and at semi-manley's position. Safety ensured and observed. Will continue to monitor.
[2020-06-10 08:00] VITALS: BP 154/90
[2020-06-10] MEDS: PANTOPRAZOLE 40 MG VIAL IV SCH (08:34)
[2020-06-10] MEDS: IV NS 0.9% 1,000 ML IV PRN (08:48)
[2020-06-10] MEDS ORDERED: LEVETIRACETAM (250 MG) 250 MG TABLET PO SCH (11:51)
[2020-06-10] MEDS: LORAZEPAM INJ 2 MG/ML VIAL IV PRN ×2 (13:31→20:06)
--- NOTE | 2020-06-10 13:54 | NUR ---
rn note: informed Stephanie Don DNP about patient having hematuria with 500ml of dark red urine noted via dunaway catheter. Prior hx of hematuria noted on patient chart. No pain noted on patient. Awaiting response.
--- NOTE | 2020-06-10 15:18 | NUR ---
RN NOTE: STAT CBC ORDERED BY ELIJAH VANESSA. NOTED AND CARRIED OUT.
[2020-06-10 15:58] LABS: BASOPHILS % (AUTO) 0.6 % (0.0-2.0); EOSINOPHILS % (AUTO) 2.6 % (0.0-6.0); HEMATOCRIT 24 % (39-51); HEMOGLOBIN 7.8 g/dL (13.5-17.5); LYMPHOCYTES # (AUTO) 1.5 /CMM (0.8-4.8); LYMPHOCYTES % (AUTO) 22.2 % (20.0-44.0); MEAN CORPUSCULAR HGB CONC 32 g/dl (31.0-36.0); MEAN CORPUSCULAR VOLUME 85 fL (80-96); MONOCYTES # (AUTO) 0.6 /CMM (0.1-1.30); MONOCYTES % (AUTO) 9.5 % (2.0-12.0); NEUTROPHILS # (AUTO) 4.4 /CMM (1.8-8.9); NEUTROPHILS % (AUTO) 65.1 % (43.0-81.0); PLATELET COUNT (AUTO) 86 /CMM (150-450); RED BLOOD CELL COUNT(AUTO) 2.85 MIL/uL (4.5-6.0); WHITE BLOOD COUNT (AUTO) 6.8 K/uL (4.3-11.0)
[2020-06-10 16:00] VITALS: BP 143/85
[2020-06-10] MEDS: GENTAMICIN 450 MG in IV D5W 100 ML IV SCH (16:08)
[2020-06-10] MEDS: PANTOPRAZOLE 40 MG TABLET.DR PO SCH (16:08)
[2020-06-10 17:26] LABS: BAND % (MANUAL) 1 % (0.0-5.0); EOSINOPHILS % (MANUAL) 1 % (0-4); LYMPHOCYTES % (MANUAL) 22 % (16-48); MONOCYTES % (MANUAL) 4 % (0-11.0); NEUTROPHILS % (MANUAL) 68 (42-76); REACTIVE LYMPHOCYTES 4 % (0-0)
--- NOTE | 2020-06-10 18:53 | NUR ---
RN CLOSING NOTES: Patient still in bed and confused. Isolation precautions to R/O covid in place. On Room Air. No SOB or respiratory distress noted. IV sites on LAC #18 and SIVA #20 patent and flushed. Dressing c/d/i. Gtube patent and in place. Feeding of Glucerna 1.2 @ 50mls/hr being tolerated well. No pain noted on patient. Hematuria present. Reza catheter in place and draining blood-tinged urine. Patient on cont. bladder irrigation. On Bilateral soft wrist restraints for previous behavior identified. No pain noted nor reported by patient. Call light in reach. Bed locked, low and at semi-manley's position. Safety ensured and observed. Treatment given as ordered. Due medications given. Endorsed to oncoming shift for LIANET.
--- NOTE | 2020-06-10 19:30 | NUR ---
RN OPENING NOTES: PATIENT IN BED, AWAKE, AND VERBALLY RESPONSIVE. ON RA, SPO2 >95%, UNLABORED BREATHING. NO C/O PAIN AT THIS TIME. UPON ENDORSEMENT, PATIENT WAS STARTED ON CONTINUOUS BLADDER IRRIGATION AT AROUND 1800; ON THREE-WAY JONES CATH, INTACT AND PATENT, DRAINING BLOOD-TINGED URINE, NO BLOOD CLOTS. ON GTF AT 50 MLS/HR, GOAL 55 MLS/HR, MINIMAL RESIDUAL AT THIS TIME. PATIENT HAS LEFT AC G22 AND LEFT FA G20 IV SITES; BOTH C/D/I AND FLUSHING WELL. SAFETY PRECAUTIONS IMPLEMENTED. BED LOCKED, ALARM ON, LOW POSITION. SIDE RAILS X 3 UP, HOB ELEVATED. ON BILATERAL SOFT WRIST RESTRAINTS ORDERED. CALL LIGHT WITHIN REACH. WILL CONT. TO MONITOR PATIENT Q15 MINS.
[2020-06-10 20:00] VITALS: BP 155/64
[2020-06-10] MEDS: HYDROCODONE/APAP 5/325MG 1 EACH TABLET PO PRN (20:57)
--- NOTE | 2020-06-10 22:30 | NUR ---
RN NOTE: OBSERVED THAT PATIENT'S CONTINUOUS BLADDER IRRIGATION (CBI) STOPPED DRAINING OUTPUT INTO JONES BAG. PATIENT CONSTANTLY ATTEMPTING TO REMOVE JONES CATH BY MOVING HIS LEGS. ASSESSED PATIENT AND NOTED THAT THE THREE-WAY JONES CATH WAS PULLED OUT. CHARGE NURSE NOTIFIED AND INSERTED A NEW ONE. PATIENT TOLERATED PROCEDURE WELL. NO APPARENT INJURY NOTED. CBI RESUMED. WILL CONT. TO MONITOR.
[2020-06-10 23:11] LABS: BASOPHILS # (AUTO) 0.1 /CMM (0.0-0.2); BASOPHILS % (AUTO) 0.5 % (0.0-2.0); EOSINOPHILS % (AUTO) 1.1 % (0.0-6.0); HEMATOCRIT 30 % (39-51); HEMOGLOBIN 9.4 g/dL (13.5-17.5); LYMPHOCYTES # (AUTO) 1.8 /CMM (0.8-4.8); LYMPHOCYTES % (AUTO) 11.7 % (20.0-44.0); MEAN CORPUSCULAR HGB CONC 32 g/dl (31.0-36.0); MEAN CORPUSCULAR VOLUME 86 fL (80-96); MONOCYTES # (AUTO) 0.9 /CMM (0.1-1.30); MONOCYTES % (AUTO) 5.6 % (2.0-12.0); NEUTROPHILS # (AUTO) 12.2 /CMM (1.8-8.9); NEUTROPHILS % (AUTO) 81.1 % (43.0-81.0); PLATELET COUNT (AUTO) 118 /CMM (150-450); RED BLOOD CELL COUNT(AUTO) 3.48 MIL/uL (4.5-6.0); WHITE BLOOD COUNT (AUTO) 15.1 K/uL (4.3-11.0)
[2020-06-11] MEDS: GLUCERNA 1.2 1,000 ML BOTTLE NG PRN (00:42)
[2020-06-11] MEDS: AMPICILLIN 2 GM in IV NS 0.9% 100 ML IV SCH ×4 (02:07→20:27)
--- NOTE | 2020-06-11 02:25 | NUR ---
RN NOTE: PATIENT'S URINE COLOR NOW LIGHT RED/ALMOST PINKISH. NO BLOOD CLOTS NOTED. CONT. ON CBI TOLERATED. WILL CONT. TO MONITOR.
[2020-06-11 04:00] VITALS: BP 157/82
[2020-06-11 06:14] LABS: BASOPHILS % (AUTO) 0.4 % (0.0-2.0); EOSINOPHILS % (AUTO) 0.3 % (0.0-6.0); HEMATOCRIT 27 % (39-51); HEMOGLOBIN 8.6 g/dL (13.5-17.5); LYMPHOCYTES # (AUTO) 1.5 /CMM (0.8-4.8); LYMPHOCYTES % (AUTO) 14.3 % (20.0-44.0); MEAN CORPUSCULAR HGB CONC 32 g/dl (31.0-36.0); MEAN CORPUSCULAR VOLUME 88 fL (80-96); MONOCYTES # (AUTO) 0.7 /CMM (0.1-1.30); MONOCYTES % (AUTO) 6.7 % (2.0-12.0); NEUTROPHILS # (AUTO) 7.9 /CMM (1.8-8.9); NEUTROPHILS % (AUTO) 78.3 % (43.0-81.0); PLATELET COUNT (AUTO) 97 /CMM (150-450); RED BLOOD CELL COUNT(AUTO) 3.09 MIL/uL (4.5-6.0); WHITE BLOOD COUNT (AUTO) 10.1 K/uL (4.3-11.0)
[2020-06-11 07:04] LABS: CALCIUM, SERUM 9.1 mg/dL (8.5-10.1); CREATININE 1.3 mg/dL (0.6-1.3); MAGNESIUM 2.3 mg/dL (1.8-2.4); PHOSPHORUS 4.2 mg/dL (2.5-4.9); POTASSIUM 4.1 mmol/L (3.5-5.1)
--- NOTE | 2020-06-11 07:20 | NUR ---
RN CLOSING NOTES: PATIENT IN NO ACUTE DISTRESS. STABLE CONDITION. ENDORSED TO AM RN FOR CONTINUITY OF CARE. Addendum: 06/11/20 at 0732 by BRADEN MARTE RN PATIENT TOLERATED CBI DURING SHIFT. OVERALL INTAKE 10,500 AND OUTPUT 11,100. ENDORSED TO AM RN.
--- NOTE | 2020-06-11 07:30 | NUR ---
Received patient resting in bed, responsive to name . Patient noted with F/C and continues bladder irrigation; hematuria present. Noted with b/l soft restrains for safety. IV line flushing well. Will continue to monitor
[2020-06-11 08:00] VITALS: BP 144/96
[2020-06-11 08:07] LABS: BAND % (MANUAL) 1 % (0.0-5.0); EOSINOPHILS % (MANUAL) 1 % (0-4); LYMPHOCYTES % (MANUAL) 16 % (16-48); MONOCYTES % (MANUAL) 4 % (0-11.0); NEUTROPHILS % (MANUAL) 78 (42-76)
[2020-06-11] MEDS: PANTOPRAZOLE 40 MG TABLET.DR PO SCH ×2 (09:02→16:41)
[2020-06-11 12:00] VITALS: BP 148/84
--- NOTE | 2020-06-11 13:54 | NUR ---
Per Florencia DNP continue with bladder irrigation
[2020-06-11 16:00] VITALS: BP 151/86
[2020-06-11] MEDS: GENTAMICIN 450 MG in IV D5W 100 ML IV SCH (16:00)
--- NOTE | 2020-06-11 16:10 | NUR ---
Patient noted with fever 102. Cooling measures implemented and Tylenol administrated. Florencia Cuenca DNP notified
--- NOTE | 2020-06-11 19:20 | NUR ---
Patient remains stable on room air. IV line SIVA flushing well. Patient tolerated bladder irrigation well. Overall intake 5800 ml. All needs attended. Will endorse to next shift for LIANET
--- NOTE | 2020-06-11 19:30 | NUR ---
ms rn oepning note received patient in bed. a/ox1. tolerating room air. respirations are even and unlabored. no s/s sob noted. patient seems to be in discomfort as he is actively squirming around. in no apparent distress. iv access in SIVA#22 patent and saline locked bilateral soft wrist restraints present, no redness noted, 2 finger breathes of room between skin and restraint. 3 way dunaway irrigation is present, draining hematuria. gtube is present, aspirated, residual is 0, flushed with no resistance, feeding running Glucerna 1.2@55ml/hr. bed is low and locked, hob elevated in semi fowlers, side rials up x2. call light within reach. will continue to monitor.
[2020-06-11 20:00] VITALS: BP 207/133
[2020-06-11] MEDS: HYDROCODONE/APAP 5/325MG 1 EACH TABLET PO PRN (20:30)
--- NOTE | 2020-06-11 20:51 | NUR ---
ms rn note administered prn norco 5/325 for temp and d/t s/s pain during bladder irrigation. will continue to monitor.
[2020-06-11 21:31] VITALS: BP 159/90
[2020-06-12] MEDS ORDERED: GENTAMICIN 450 MG in IV D5W 100 ML IV SCH (02:00)
[2020-06-12] MEDS: AMPICILLIN 2 GM in IV NS 0.9% 100 ML IV SCH ×4 (02:14→19:46)
[2020-06-12] MEDS: GLUCERNA 1.2 1,000 ML BOTTLE NG PRN ×2 (02:16→22:18)
[2020-06-12 04:00] VITALS: BP 148/82
--- NOTE | 2020-06-12 06:10 | NUR ---
ms psych arnp note transferred patient to room 323-2. transfer of care to KARLA thakkar. patient chart and belongings sent with him. patient is stable. no distress. a/ox1, confused. tolerating room air. iv access maintained in mayito #22 SL. gtube maintained with Glucerna 1.2@55ml/hr. bilateral soft wrist restraints still present, no redness noted. continuous bladder irrigation still intact. bed is low and locked, hob elevated in semi fowlers, side rials up x4.
--- NOTE | 2020-06-12 06:10 | NUR ---
MS RN NOTES RECEIVED PT FROM [facility]. PT A/O X1, CONFUSED. RESPIRATIONS EVEN AND UNLABORED WITH NO S/S OF ACUTE DISTRESS OR SOB NOTED. NO S/S OF PAIN AT THIS TIME. PT ON BILATERAL SOFT RESTRAINTS. PT ON CBI. SAFETY MEASURES IN PLACE WITH BED IN LOWEST LOCKED POSITION WITH SIDE RAILS UP X2. CALL LIGHT WITHIN REACH. WILL CONTINUE TO MONITOR.
[2020-06-12 06:15] VITALS: BP 146/81
--- NOTE | 2020-06-12 07:00 | NUR ---
MS RN NOTES WILL ENDORSE TO ONCOMING NURSE FOR LIANET.
[2020-06-12 07:15] LABS: CALCIUM, SERUM 9.8 mg/dL (8.5-10.1); CREATININE 1.5 mg/dL (0.6-1.3)
--- NOTE | 2020-06-12 07:30 | NUR ---
MS/RN OPENING NOTES Patient received in bed, A&O x1, responsive to verbal and tactile stimulation with incomprehensible speech. No s/s of pain/discomfort at this time. Breathing even and non-labored on RA, no SOB noted. No respiratory or cardiac distress noted. IV access noted on SIVA #22, patent and intact, and flushing well. No s/s of bleeding, infection, or infiltration on site. G-tube in place, patent and intact, running Glucerna 1.2 @55 mls/hr, tolerating feeding well. No gastric residual noted. Continuous bladder irrigation done, dunaway in place, draining clear, red urine well, no clots noted. Patient has bilateral soft wrist restraints, will continue to monitor skin and sensation every 15 minutes. As of now, skin and sensation are intact. Fall precautions maintained. Will continue to monitor for any changes in condition.
[2020-06-12 08:00] VITALS: BP 141/82
[2020-06-12 08:05] LABS: POTASSIUM 3.6 mmol/L (3.5-5.1)
[2020-06-12] MEDS: PANTOPRAZOLE 40 MG TABLET.DR PO SCH ×2 (08:16→16:20)
--- NOTE | 2020-06-12 08:30 | NUR ---
MS/RN NOTES Assessed skin and circulation on bilateral wrists. Skin warm, dry, and normal to color. Sensation from both extremities intact. Will continue to monitor every 15 minutes.
--- NOTE | 2020-06-12 11:37 | NUR ---
MS/RN NOTES Asked Stephanie Don NP if accu-chek and insulin order is needed since patient is on G-tube feeding, states "no orders at this time since his BS is stable."
[2020-06-12 16:00] VITALS: BP 158/82
--- NOTE | 2020-06-12 18:30 | NUR ---
MS/RN CLOSING NOTES Patient in bed, A&O x1, remains responsive to verbal and tactile stimulation with incomprehensible speech. No s/s of pain/discomfort at this time. Breathing even and non-labored on RA, no SOB noted. No respiratory or cardiac distress noted. IV access noted on SIVA #22, patent and intact, and flushing well. No s/s of bleeding, infection, or infiltration on site. G-tube in place, patent and intact, running Glucerna 1.2 @55 mls/hr, tolerating feeding well. No gastric residual noted. Continuous bladder irrigation done, dunaway in place, hematuria noted. Patient has bilateral soft wrist restraints, will continue to monitor skin and sensation every 15 minutes, skin and sensation remain intact. Fall precautions maintained. Will endorse to hotel night auditor nurse.
--- NOTE | 2020-06-12 19:05 | NUR ---
RN OPENING NOTES Received patient awake, A/O x1, on RA, no SOB or discomfort noted at this time. With GTF infusing well, no abdominal distention noted, no N/V noted. With CBI, blood tinge output noted. Kept on bed with KCI mattress. With bilateral soft wrist restraints to prevent patient from pulling off tube/lines. Will continue to monitor accordingly.
[2020-06-12 20:00] VITALS: BP 163/85
[2020-06-13] MEDS: AMPICILLIN 2 GM in IV NS 0.9% 100 ML IV SCH ×4 (01:42→19:51)
[2020-06-13 06:19] LABS: BASOPHILS # (AUTO) 0.1 /CMM (0.0-0.2); BASOPHILS % (AUTO) 0.7 % (0.0-2.0); EOSINOPHILS % (AUTO) 1.6 % (0.0-6.0); HEMATOCRIT 27 % (39-51); HEMOGLOBIN 8.3 g/dL (13.5-17.5); LYMPHOCYTES # (AUTO) 1.6 /CMM (0.8-4.8); LYMPHOCYTES % (AUTO) 18.5 % (20.0-44.0); MEAN CORPUSCULAR HGB CONC 31 g/dl (31.0-36.0); MEAN CORPUSCULAR VOLUME 89 fL (80-96); MONOCYTES # (AUTO) 0.6 /CMM (0.1-1.30); MONOCYTES % (AUTO) 6.8 % (2.0-12.0); NEUTROPHILS # (AUTO) 6.4 /CMM (1.8-8.9); NEUTROPHILS % (AUTO) 72.4 % (43.0-81.0); PLATELET COUNT (AUTO) 113 /CMM (150-450); RED BLOOD CELL COUNT(AUTO) 2.98 MIL/uL (4.5-6.0); WHITE BLOOD COUNT (AUTO) 8.8 K/uL (4.3-11.0)
[2020-06-13 06:34] LABS: CALCIUM, SERUM 9.2 mg/dL (8.5-10.1); CREATININE 1.3 mg/dL (0.6-1.3); MAGNESIUM 2.1 mg/dL (1.8-2.4); PHOSPHORUS 3.5 mg/dL (2.5-4.9); POTASSIUM 3.6 mmol/L (3.5-5.1)
--- NOTE | 2020-06-13 07:03 | NUR ---
RN CLOSING NOTES Patient awake on bed. On RA, no s/sx of discomfort/distress noted at this time. On CBI, light pink output noted at this time. Total irrigation intake 2500ml, total output 3050ml. Pt noted able to take fluid without s/sx of aspiration noted. Afebrile the whole shift, no new unusualities noted. All nursing needs attended. Due meds given as ordered. Kept on bed clean, dry and comfortable. Bilateral soft wrist restraints on, no s/sx of injury noted. Endorsed to the next shift.
--- NOTE | 2020-06-13 07:30 | NUR ---
MS/RN OPENING NOTES Patient in bed, A&O x1, responsive to verbal and tactile stimulation with incomprehensible speech. Breathing even and non-labored on RA. No respiratory or cardiac distress noted. IV access noted on SIVA #22, patent and intact, and flushing well. No s/s of pain/discomfort at this time. No s/s of bleeding, infection, or infiltration on site. G-tube in place, patent and intact, no gastric residual noted, running Glucerna 1.2 @55 mls/hr, tolerating feeding well. Continuous bladder irrigation carried out, dunaway in place, draining angela urine well, no clots noted. Patient has bilateral soft wrist restraints, will continue to monitor skin and sensation every 15 minutes. Currently, skin and sensation are intact. Fall precautions maintained. Will continue to monitor for any changes in condition.
[2020-06-13 08:00] VITALS: BP 175/72
[2020-06-13] MEDS: PANTOPRAZOLE 40 MG TABLET.DR PO SCH ×2 (08:07→16:40)
[2020-06-13 09:00] VITALS: BP 155/83
--- NOTE | 2020-06-13 13:00 | NUR ---
MS/RN NOTES Took off patient's restraints, patient is quiet and compliant with care. Skin and sensation from both upper extremities are intact. Will continue to monitor for any changes in condition.
--- NOTE | 2020-06-13 15:15 | NUR ---
MS/RN NOTES Clarified DVT pump order with Stephanie Don NP since pt has hx of LLE DVT (unable to determine when), states ok to d/c DVT pump. Order carried out.
--- NOTE | 2020-06-13 15:30 | NUR ---
MS/RN NOTES Notified Stephanie Don NP of patient's BP today 140s-150s/90s and asked if we need to order a BP med, states "no, only if BP > 160."
[2020-06-13 16:00] VITALS: BP 145/94
--- NOTE | 2020-06-13 18:40 | NUR ---
MS/RN CLOSING NOTES Patient in bed, A&O x1, remains responsive to verbal and tactile stimulation with incomprehensible speech. Denies any pain/discomfort at this time. Breathing even and non-labored on RA, no SOB noted. No cardiac distress noted. IV access noted on SIVA #22, patent and intact, and flushing well. No s/s of bleeding, infection, or infiltration on site. G-tube in place, patent and intact, no gastric residual noted, running Glucerna 1.2 @55 mls/hr, tolerating feeding well. Continuous bladder irrigation done, dunaway in place, draining angela urine (2300 cc for the shift) well, no clots noted. Patient remains compliant with care, does not need restraints anymore at this time. Skin and sensation from both wrists remain intact. Sensation from all other peripheral extremities intact. Fall precautions maintained. Will endorse to shift engineer nurse.
--- NOTE | 2020-06-13 19:30 | NUR ---
ms rn opening note received patient in bed. a/ox1. tolerating room air. respirations are even and unlabored. no s/s sob noted. no s/s pain at this time. in no apparent distress. iv access in left hand #20 patent and saline locked. continuos bladder irrigation in place. gtube is present, aspirated, residual 260ml/ stopped gtube feeding. bed is low and locked, hob elevated in high fowlers, side rials up x3. on specialty matrass. call light within reach. will continue to monitor.
[2020-06-13 20:00] VITALS: BP 130/65
[2020-06-13] MEDS ORDERED: GENTAMICIN 450 MG in IV D5W 100 ML IV SCH (21:00)
[2020-06-13] MEDS: METOPROLOL TARTRATE 25 MG TABLET PO SCH (21:17)
--- NOTE | 2020-06-14 | NUR ---
MS RN NOTE CHECKED GTUBE RESIDUAL, 15ML. CONTINUED GTUBE FEEDING OF GLUCERNA 1.2@55ML/HR. WILL CONTINUE TO MONITOR.
[2020-06-14] MEDS: AMPICILLIN 2 GM in IV NS 0.9% 100 ML IV SCH ×4 (02:10→20:14)
[2020-06-14] MEDS: GLUCERNA 1.2 1,000 ML BOTTLE NG PRN ×2 (04:29→23:00)
--- NOTE | 2020-06-14 05:00 | NUR ---
MS RN NOTE PATIENT REFUSED PHOTOS TO BE TAKEN PER PROTOCOL. WILL CONTINUE TO MONITOR.
--- NOTE | 2020-06-14 07:30 | NUR ---
ms rn closing note patient in bed. a/ox1-2. tolerating room air. no sob noted. no s/s pain noted. no distress noted. iv access in right hand #20 patent and saline locked. continuos bladder irrigation is maintained. input 9000ml output 9800. gtube is maintained running feeding glucerna 1.2@55ml/hr. patient on bilateral sodt wrist restraints no redness noted, with 2 finger breaths of space between skin and restraint. bed remains low and locked, hob elevated in high fowlers, side rials up x3. on specialty matrass. call light within reach. will endorse to next shift.
--- NOTE | 2020-06-14 07:30 | NUR ---
RN OPENING NOTES Received Patient in bed, A&O x1, remains responsive to verbal and tactile stimulation. No cardiac or respiratory distress noted. Breathing even and non-labored on RA, no SOB noted. IV access noted on SIVA #22, patent and intact, and flushing well. G-tube in place, patent and intact, no gastric residual noted, running Glucerna 1.2 @55 mls/hr, tolerating feeding well. no gastric residuals noted. Continuous bladder irrigation done, dunaway in place, draining with light yellow urine. well, no clots noted. bilateral soft wrist restraints noted. safety precautions in place. bed locked and in low position. side rails up x2. bed alarm on. call light within reach.
[2020-06-14 07:41] LABS: CALCIUM, SERUM 8.8 mg/dL (8.5-10.1); CREATININE 1.1 mg/dL (0.6-1.3); POTASSIUM 3.5 mmol/L (3.5-5.1)
[2020-06-14 08:00] VITALS: BP 152/82
[2020-06-14] MEDS: PANTOPRAZOLE 40 MG TABLET.DR PO SCH ×2 (08:20→15:57)
[2020-06-14] MEDS: HYDROCODONE/APAP 5/325MG 1 EACH TABLET PO PRN (08:20)
[2020-06-14] MEDS: METOPROLOL TARTRATE 25 MG TABLET PO SCH ×2 (08:59→20:23)
--- NOTE | 2020-06-14 10:00 | NUR ---
IV ACCESS IV ON R HAND PULLED OUT ACCIDENTALLY. NEW IV SITE REINSERTED ON R FOREARM G20. INTACTA ND PATENT AND FLUSHING WELL.
--- NOTE | 2020-06-14 10:45 | NUR ---
D/C BLADDER IRRIGATION PTS JONES CATH OUTPUT SHOWING CLEAR YELLOW URINE. DHERYL DNP NOTIFIED. PER LEAH NAVA TO D/C BLADDER IRRIGATION.
--- NOTE | 2020-06-14 11:50 | NUR ---
DOPPLER RESULTS ELIJAH BRIZUELA DNP MADE AWARE REGARDING BLE VENOUS DOPPLER RESULTS. NO NEW ORDERS GIVEN AT THIS TIME.
[2020-06-14 12:43] LABS: BASOPHILS # (AUTO) 0.1 /CMM (0.0-0.2); BASOPHILS % (AUTO) 0.7 % (0.0-2.0); EOSINOPHILS % (AUTO) 1.6 % (0.0-6.0); HEMATOCRIT 29 % (39-51); HEMOGLOBIN 8.8 g/dL (13.5-17.5); LYMPHOCYTES # (AUTO) 1.5 /CMM (0.8-4.8); LYMPHOCYTES % (AUTO) 19.9 % (20.0-44.0); MEAN CORPUSCULAR HGB CONC 30 g/dl (31.0-36.0); MEAN CORPUSCULAR VOLUME 91 fL (80-96); MONOCYTES # (AUTO) 0.5 /CMM (0.1-1.30); NEUTROPHILS # (AUTO) 5.5 /CMM (1.8-8.9); NEUTROPHILS % (AUTO) 71.8 % (43.0-81.0); PLATELET COUNT (AUTO) 92 /CMM (150-450); WHITE BLOOD COUNT (AUTO) 7.7 K/uL (4.3-11.0)
[2020-06-14 16:00] VITALS: BP 136/80
[2020-06-14] MEDS ORDERED: AMPI1VIA12 IJ (16:34)
[2020-06-14] MEDS ORDERED: RXGEN XX (16:34)
[2020-06-14] MEDS ORDERED: NUT.237L45 NG (16:34)
[2020-06-14] MEDS ORDERED: APIX5TAB PO (16:50)
[2020-06-14] MEDS ORDERED: CLOP75TA15 PO (16:50)
--- NOTE | 2020-06-14 19:30 | NUR ---
ms rn opening note received patient in bed. a/ox1-2. patient is speaking a lot more. tolerating room air. respirations are even and unlabored. no s/s sob noted. no c/o pain at this time. in no apparent distress. iv access in RFA#20 running tko. gtube is present, aspirated, residual 15ml. running feeding Glucerna 1.2@55ml/hr. Reza catheter is present draining to gravity. bilateral soft wrist restraints are prese,t, 2 finger breaths of room, no redness noted. bed i low an d locked hob elevated in semi manley,s side rials up x3. on specialty matrass. call light within reach. will continue to monitor.
--- NOTE | 2020-06-14 19:31 | NUR ---
RN CLOSING NOTES Patient in bed, A&O x1, remains responsive to verbal and tactile stimulation. No cardiac or respiratory distress noted. Breathing even and non-labored on RA, no SOB noted. IV access noted on SIVA #22, patent and intact, and flushing well. G-tube in place, patent and intact, no gastric residual noted, running Glucerna 1.2 @55 mls/hr, tolerating feeding well. no gastric residuals noted. pt also seen by st today, able to tolerate pureed diet with nectar thick liquid. Continuous bladder discontinued today by js mcgrath. planning for d/c back to snf. dunaway in place, draining with light yellow urine. well, no clots noted. bilateral soft wrist restraints noted. safety precautions in place. bed locked and in low position. side rails up x2. bed alarm on. call light within reach.
[2020-06-14 20:00] VITALS: BP 150/80
[2020-06-15] MEDS: AMPICILLIN 2 GM in IV NS 0.9% 100 ML IV SCH ×3 (02:48→14:47)
--- NOTE | 2020-06-15 07:46 | NUR ---
ms rn closing note patient in bed. a/ox1-2. tolerating room air. respirations are even and unlabored. no sob noted. nio s/s pain throughout shift. no distress. iv access maintained in RFA#20 running tko. gtube is running feeding Glucerna 1.2@55ml/hr. Reza catheter is draining to gravity yellow /brown urine. bilateral soft wrist restraints remain present with no redness noted. bed remains low an d locked hob elevated in semi manley,s side rials up x3. on specialty matrass. call light within reach. will endorse to next shift.
[2020-06-15] MEDS: HYDROCODONE/APAP 5/325MG 1 EACH TABLET PO PRN ×2 (07:58→15:51)
[2020-06-15] MEDS: PANTOPRAZOLE 40 MG TABLET.DR PO SCH ×2 (07:58→16:08)
[2020-06-15 08:00] VITALS: BP 153/84
[2020-06-15] MEDS ORDERED: GENTAMICIN 450 MG in IV D5W 100 ML IV SCH (08:00)
--- NOTE | 2020-06-15 08:00 | NUR ---
RN OPENING NOTES Patient in bed, A&O x2, remains responsive to verbal and tactile stimulation. No cardiac or respiratory distress noted. Breathing even and non-labored on RA, no SOB noted. IV access noted on SIVA #22, patent and intact, and flushing well. G-tube in place, patent and intact, no gastric residual noted, running Glucerna 1.2 @55 mls/hr, tolerating feeding well. no gastric residuals noted. planning for d/c back to snf. dunaway in place, draining with light yellow urine. well, no clots noted. bilateral soft wrist restraints noted. safety precautions in place. bed locked and in low position. side rails up x2. bed alarm on. call light within reach.
[2020-06-15 08:53] VITALS: BP 153/84
[2020-06-15] MEDS: METOPROLOL TARTRATE 25 MG TABLET PO SCH (08:53)
--- NOTE | 2020-06-15 09:10 | NUR ---
GENTAMICIN FOLLOWED UP WITH PHARMACY REGARDING THIS AM GENTAMICIN DOSE. PER PHARMACY, THEY ARE DELIVERING NOW.
[2020-06-15 10:36] LABS: CALCIUM, SERUM 8.5 mg/dL (8.5-10.1); CREATININE 0.9 mg/dL (0.6-1.3); POTASSIUM 3.4 mmol/L (3.5-5.1)
--- NOTE | 2020-06-15 16:00 | NUR ---
REPORT TO SNF REPORT GIVEN TO SNF KARLA GOMES FROM [facility]
--- NOTE | 2020-06-15 17:15 | NUR ---
D/C TO SNF Pt discharged back to snf in stable conditio. picked up by 2 lace finisher. iv access kept on r fore arm g20. intact and patent and flushing well. all d/c instructions given to snf rn. No cardiac or respiratory distress noted. Breathing even and non-labored on RA, no SOB noted. Igtube site intact and patent and flushed. dunaway in place, no bleeding or clots noted. pt has no belongings. left in stable condition.
== END 2020-06-15 17:15 | DRG 720 ==
LOC: ER 15:57 → ICU 20:53 → TELE1 06-07 11:03 → MEDSG1 06-07 11:05 → MED 06-12 06:27
PROVIDERS: ADMIT Student in an Organized Health Care Education/Training Program; ATTEND Student in an Organized Health Care Education/Training Program
PROC: 05HY33Z Insertion of Infusion Device into Upper Vein, Percutaneous Approach (ICD-10-PCS; principal; 2020-06-06)
DX: A41.81 Sepsis due to Enterococcus (principal); R65.21 Severe sepsis with septic shock; N18.9 Chronic kidney disease, unspecified; N17.0 Acute kidney failure with tubular necrosis; G93.40 Encephalopathy, unspecified; D69.6 Thrombocytopenia, unspecified; D68.59 Other primary thrombophilia; D63.1 Anemia in chronic kidney disease; I21.A1 Myocardial infarction type 2; J18.9 Pneumonia, unspecified organism; E44.1 Mild protein-calorie malnutrition; E11.22 Type 2 diabetes mellitus with diabetic chronic kidney disease; I13.10 Hypertensive heart and chronic kidney disease without heart failure, with stage 1 through stage 4 chronic kidney disease, or unspecified chronic kidney disease; Z79.51 Long term (current) use of inhaled steroids; Z79.4 Long term (current) use of insulin; Z79.01 Long term (current) use of anticoagulants; Z79.82 Long term (current) use of aspirin; R31.9 Hematuria, unspecified; I25.2 Old myocardial infarction; I25.10 Atherosclerotic heart disease of native coronary artery without angina pectoris; F41.9 Anxiety disorder, unspecified; I70.0 Atherosclerosis of aorta; Z93.1 Gastrostomy status; Z95.5 Presence of coronary angioplasty implant and graft; Z79.899 Other long term (current) drug therapy; N40.0 Benign prostatic hyperplasia without lower urinary tract symptoms; K59.00 Constipation, unspecified; N39.0 Urinary tract infection, site not specified; I69.320 Aphasia following cerebral infarction; F17.210 Nicotine dependence, cigarettes, uncomplicated; I69.391 Dysphagia following cerebral infarction; D64.9 Anemia, unspecified; L89.159 Pressure ulcer of sacral region, unspecified stage; J12.9 Viral pneumonia, unspecified; K65.1 Peritoneal abscess; F03.90 Unspecified dementia, unspecified severity, without behavioral disturbance, psychotic disturbance, mood disturbance, and anxiety; E78.5 Hyperlipidemia, unspecified; E87.0 Hyperosmolality and hypernatremia; E87.2 Acidosis; E87.6 Hypokalemia; I82.491 Acute embolism and thrombosis of other specified deep vein of right lower extremity; I82.512 Chronic embolism and thrombosis of left femoral vein; D63.8 Anemia in other chronic diseases classified elsewhere; A41.89 Other specified sepsis; K42.9 Umbilical hernia without obstruction or gangrene; K57.30 Diverticulosis of large intestine without perforation or abscess without bleeding; Z16.35 Resistance to multiple antimicrobial drugs; Z79.84 Long term (current) use of oral hypoglycemic drugs
CPT/HCPCS: 36415; 70450-TC; 71045-TC; 80048-TC; 80053-TC; 80061-TC; 80170-TC; 81000-TC; 82248-TC; 82533; 82728-TC; 83540-TC; 83605-TC; 83615-TC; 83735-TC; 83880; 84100-TC; 84153-TC; 84154-TC; 84439-TC; 84443-TC; 84484-TC; 85025-TC; 85378-TC; 85730-TC; 86850-TC; 87040-TC; 87081-TC; 87086-TC; 87186-TC; 92611-TC; 93307-TC; 93970-TC; A4216; A4217; C1769; C9113; G0378; J0290; J1580; J2060; J2185; J2370; J2543; J3370; J3490; J7030; J7040; J7050; J7060; U0003-CS

== ENCOUNTER 2020-08-30 07:50 | Inpatient (IN) | payer OTHER ==
[~2020-08-30] VITALS: Ht 165.1 cm; Wt 72.6 kg
[~2020-08-30 07:50] MED LIST changes: -AMIN30LI2 GT; +AMLO10TA7 GT; +AMPI1VIA12 IJ; +APIX5TAB PO; -ASPI-1169 GT; -ATOR40TA GT; -BECL10.62 IH; +CAND16TA13 GT; -CARV12.52 GT; +CLON0.1T GT; -CLON1PAT2 TD; -CLOP75TA15 GT; +CLOP75TA15 PO; +EPOE40002 IJ; +FERR220E2 GT; -FLUC200T GT; -HYDR-4077 GT; +HYDR25TA4 GT; -INSU100V3 SQ; -INSU100V7 SQ; -ISOS10TA8 GT; -KRIL1CAP GT; +LABE100T5 GT; +LACT1TAB22 GT; -LEVA0.31 IH; +LORA-258 GT; +LORA2VIA11 IM; -LOSA25TA27 GT; +METF-440 GT; +MULT9LIQ6 GT; -NICO-676 TD; +NUT.237L45 NG; +ROSU40TA GT; +RXGEN XX; +TAMS-12 GT; +VIT500LI GT
--- NOTE | 2020-08-30 08:05 | NUR ---
SHAW, FROM [facility], G-TUBE FOUND DISLODGED AT 6AM, UNKNOWN SIZE. PREVIOUS GT. NO FEVER NOTED. NO SOB. V/S STABLE. AWAITING FOR MD CHURCH
--- NOTE | 2020-08-30 08:10 | NUR ---
SEEN AND EVALUATED BY .
--- NOTE | 2020-08-30 08:58 | NUR ---
IV LINE ESTABLISHED. COVID SWAB TEST COLLECTED AND SENT TO LAB.
--- NOTE | 2020-08-30 08:58 | NUR ---
X RAY DONE AT PT BEDSIDE
[2020-08-30 09:04] LABS: BASOPHILS # (AUTO) 0.1 /CMM (0.0-0.2); BASOPHILS % (AUTO) 1.3 % (0.0-2.0); EOSINOPHILS % (AUTO) 4.8 % (0.0-6.0); HEMATOCRIT 39 % (39-51); HEMOGLOBIN 12.3 g/dL (13.5-17.5); LYMPHOCYTES # (AUTO) 1.7 /CMM (0.8-4.8); LYMPHOCYTES % (AUTO) 24.2 % (20.0-44.0); MEAN CORPUSCULAR HGB CONC 32 g/dl (31.0-36.0); MEAN CORPUSCULAR VOLUME 85 fL (80-96); MONOCYTES # (AUTO) 0.6 /CMM (0.1-1.30); MONOCYTES % (AUTO) 8.3 % (2.0-12.0); NEUTROPHILS # (AUTO) 4.4 /CMM (1.8-8.9); NEUTROPHILS % (AUTO) 61.4 % (43.0-81.0); PLATELET COUNT (AUTO) 136 /CMM (150-450); RED BLOOD CELL COUNT(AUTO) 4.54 MIL/uL (4.5-6.0); WHITE BLOOD COUNT (AUTO) 7.2 K/uL (4.3-11.0)
[2020-08-30] MEDS ORDERED: OLME40TA12 PO (09:15)
[2020-08-30] MEDS ORDERED: UMEC62.5 IH (09:15)
--- NOTE | 2020-08-30 09:20 | NUR ---
CALLED ON-CALL [phone] DR. BAUM
[2020-08-30 09:35] LABS: CALCIUM, SERUM 9.7 mg/dL (8.5-10.1); CREATININE 1.3 mg/dL (0.6-1.3); POTASSIUM 3.8 mmol/L (3.5-5.1)
[2020-08-30] MEDS ORDERED: EPOETIN ALFA (4000 UNIT) 4,000 UNIT/ML VIAL IJ SCH (10:30)
[2020-08-30] MEDS ORDERED: ACETAMINOPHEN 325 MG TABLET MC PRN (10:30)
[2020-08-30] MEDS ORDERED: TEMAZEPAM 15 MG CAPSULE PO PRN (10:30)
[2020-08-30] MEDS ORDERED: MORPHINE SULFATE INJ 2 MG/ML DISP.SYRIN IV PRN (10:30)
[2020-08-30] MEDS ORDERED: ACETAMINOPHEN 325 MG TABLET PO PRN (10:30)
[2020-08-30] MEDS ORDERED: Z GUARD REMEDY 2 OZ OINT TP PRN (10:30)
[2020-08-30] MEDS ORDERED: DEXTROSE 50%-WATER 50 ML DISP.SYRIN IV PRN ×2 (10:30→11:00)
[2020-08-30] MEDS ORDERED: ONDANSETRON HCL/PF 4 MG/2 ML VIAL IVP PRN (10:30)
[2020-08-30] MEDS ORDERED: MAG HYDROX/AL HYDROX/SIMETH 30 ML UDC PO PRN (10:30)
[2020-08-30] MEDS ORDERED: INSULIN REGULAR, HUMAN 100 UNIT/ML 3 ML VIAL SQ PRN (10:30)
[2020-08-30] MEDS ORDERED: MAGNESIUM HYDROXIDE 30 ML UDC PO PRN (10:30)
[2020-08-30] MEDS ORDERED: BISACODYL SUPP (10 MG) 10 MG/SUPP.RECT SUPP.RECT RC PRN (10:30)
[2020-08-30] MEDS ORDERED: CLONIDINE HCL 0.1 MG TABLET GT PRN (10:30)
--- NOTE | 2020-08-30 10:31 | NUR ---
PATIENT WILL GO TO MS [id number]
--- NOTE | 2020-08-30 10:38 | NUR ---
REPORT GIVEN TO KARLA NICOLAS FOR LIANET MS [id number].
--- NOTE | 2020-08-30 11:48 | NUR ---
iv line pulled out. REINSERTED IV LINE ON RAC 20G
[2020-08-30] MEDS ORDERED: BLOOD SUGAR DIAGNOSTIC 1 EACH STRIP IN SCH (12:00)
--- NOTE | 2020-08-30 12:00 | NUR ---
MS APPRAISAL SPECIALIST NOTES Received Patient resting in bed. A/O x 3. VS stable with no acute distress. Breathing even and unlabored on room air with no respiratory distress. Denies pain. No signs and symptoms of pain. 20g PIV on right hand intact, patent and flushing well. Skin assessment pictures taken and placed in chart. Safety precautions in place. Bed locked and set to lowest position with side rails x 2 up. All needs rendered at this time. Call light within reach. Will continue to monitor.
[2020-08-30] MEDS: BLOOD SUGAR DIAGNOSTIC 1 EACH STRIP IN SCH ×3 (12:57→23:26)
[2020-08-30 16:00] VITALS: BP 159/89
[2020-08-30] MEDS: FAMOTIDINE (20 MG) 20 MG TABLET GT SCH (18:12)
[2020-08-30] MEDS: LABETALOL HCL (100MG) 100 MG TABLET GT SCH (18:12)
[2020-08-30] MEDS: INSULIN REGULAR, HUMAN 100 UNIT/ML 3 ML VIAL SQ PRN (18:24)
[2020-08-30 20:00] VITALS: BP 150/72
--- NOTE | 2020-08-30 20:00 | NUR ---
MS2/RN RECEIVED PATIENT AWAKE, ALERT, ORIENTED TO PERSON ONLY, COMFORTABLE, NO C/O PAIN, NO DISTRESS NOTED, CALL LIGHT IN REACH. PLAN OF CARE DISCUSSED, NEEDS REENFORCEMENT. WILL MONITOR.
--- NOTE | 2020-08-30 20:21 | NUR ---
MS RN CLOSING NOTES Patient resting in bed. A/O x 3. VS stable with no acute distress. Breathing even and unlabored on room air with no respiratory distress. Denies pain. No signs and symptoms of pain. 20g PIV on right hand intact, patent and flushing well. Safety precautions in place. Bed locked and set to lowest position with side rails x 2 up. All needs rendered at this time. Call light within reach. Will endorse plan of care to oncoming shift.
--- NOTE | 2020-08-30 20:50 | NUR ---
MS2/RN CALLED [facility] [phone] TO VERIFY PERSON TO GIVE CONSENT FOR THE PATIENT, NO ANSWER. CALLED DAUGHTER, [phone], NO ANSWER WELL, VOICEMAIL NOT AVAILABLE. WILL TRY TO CALL AGAIN.
--- NOTE | 2020-08-30 21:19 | NUR ---
MS2/RN CALLED PATIENT'S MOTHER ON RECORD, CHRISTIANO MATHIS, , NO ANSWER, LEFT MESSAGE TO RETURN MY CALL.
--- NOTE | 2020-08-30 22:00 | NUR ---
MS2/RN ATTEMPTED TO CALL [facility] AGAIN, BUT NO ANSWER.
[2020-08-30] MEDS: DOCUSATE SODIUM 100 MG CAPSULE PO SCH (22:43)
[2020-08-30] MEDS: TAMSULOSIN 0.4 MG CAP.SR.24H GT SCH (22:43)
--- NOTE | 2020-08-31 | NUR ---
MS RN NOTES RECEIVED REPORT FROM KARLA BALL; WILL CONTINUE PLAN OF CARE AND CONTINUE TO MONITOR
--- NOTE | 2020-08-31 02:05 | NUR ---
MS ACOSTA NOTES PATIENT PULLED OUT IV SITE AND REFUSING FOR RE-INSERTION; RISKS/BENEFITS DISCUSSED WITH PATIENT, PATIENT CONTINUOUSLY REFUSING; IV TIP INTACT; WILL CONT TO MONITOR Addendum: 08/31/20 at 0321 by MARY BEAR RN MS ACOSTA NOTES DOCUMENTATION SPECIALIST SHANKAR SMITH MADE AWARE; PER , OK FOR PATIENT TO NOT HAVE IV ACCESS FOR NOW HE WILL CONT TO PULL IV SITE OUT; WILL INFORM DAY SHIFT; WILL CONT TO MONITOR
[2020-08-31] MEDS: BLOOD SUGAR DIAGNOSTIC 1 EACH STRIP IN SCH ×3 (05:49→18:03)
--- NOTE | 2020-08-31 06:16 | NUR ---
MS RN CLOSING NOTES PATIENT RESTING IN BED COMFORTABLY; A/OX1-2, CONFUSED; BREATHING EVEN AND UNLABORED; NO SOB NOTED; TOLERATING ROOM AIR WELL; NO DISTRESS NOTED; PATIENT AMBULATORY; PATIENT NPO FOR EGD PROCEDURE LATER TODAY; CONSENT SIGNED VIA PHONE BY MOTHER, CHRISTIANO CHEATHAM; CONSENT WITNESS BY KARLA BALL; PATIENT REFUSING IV ACCESS, MADE AWARE; PER MD, OKAY FOR NO IV ACCESS FOR TIME BEING; ISOLATION PRECAUTIONS MAINTAINED; ALL NEEDS RENDERED; SAFETY PRECAUTIONS IMPLEMENTED; BED LOCKED IN LOW POSITION; SIDE RAILSX2; CALL LIGHT WITHIN REACH; WILL ENDORSE LIANET TO ONCOMING SHIFT
[2020-08-31 06:51] LABS: BASOPHILS # (AUTO) 0.1 /CMM (0.0-0.2); HEMATOCRIT 39 % (39-51); HEMOGLOBIN 12.5 g/dL (13.5-17.5); LYMPHOCYTES # (AUTO) 2.1 /CMM (0.8-4.8); LYMPHOCYTES % (AUTO) 24.7 % (20.0-44.0); MEAN CORPUSCULAR HGB CONC 32 g/dl (31.0-36.0); MEAN CORPUSCULAR VOLUME 83 fL (80-96); MONOCYTES # (AUTO) 0.7 /CMM (0.1-1.30); MONOCYTES % (AUTO) 8.8 % (2.0-12.0); NEUTROPHILS # (AUTO) 5.1 /CMM (1.8-8.9); NEUTROPHILS % (AUTO) 61.5 % (43.0-81.0); PLATELET COUNT (AUTO) 139 /CMM (150-450); RED BLOOD CELL COUNT(AUTO) 4.66 MIL/uL (4.5-6.0); WHITE BLOOD COUNT (AUTO) 8.3 K/uL (4.3-11.0)
[2020-08-31 07:21] LABS: THYROID STIMULATING HORMONE 0.252 uIU/mL (0.358-3.74)
--- NOTE | 2020-08-31 07:30 | NUR ---
MS/RN OPENING NOTE Patient resting in bed, A&O x 1, confused. Breathing even and non-labored on RA, no SOB noted. No cardiac distress noted. Denies any pain and discomfort. No IV access noted, MD aware. Mai ACOSTA from overnight cashier endorsed to OR nurses to have IV done at OR because patient constantly pulls his lines. Sensation from all peripheral extremities intact. Side rails x 2 up, bed locked to its lowest position, call light in hand. Will continue with current medical management.
[2020-08-31 08:01] LABS: CALCIUM, SERUM 9.8 mg/dL (8.5-10.1); CREATININE 1.2 mg/dL (0.6-1.3); PHOSPHORUS 3.7 mg/dL (2.5-4.9); POTASSIUM 3.2 mmol/L (3.5-5.1)
[2020-08-31 08:13] LABS: MAGNESIUM 1.9 mg/dL (1.8-2.4)
[2020-08-31] MEDS: HYDROCHLOROTHIAZIDE 25 MG TABLET GT SCH (09:00)
[2020-08-31] MEDS: FAMOTIDINE (20 MG) 20 MG TABLET GT SCH ×2 (09:00→18:03)
[2020-08-31] MEDS: ACIDOPHILUS/BULGARICUS 1 EACH TAB.CHEW GT SCH (09:00)
[2020-08-31] MEDS: ATORVASTATIN 40 MG TABLET GT SCH (09:00)
[2020-08-31] MEDS: AMLODIPINE BESYLATE 10 MG TABLET GT SCH (09:00)
[2020-08-31] MEDS: DOCUSATE SODIUM 100 MG CAPSULE PO SCH ×2 (09:00→21:42)
[2020-08-31] MEDS: LABETALOL HCL (100MG) 100 MG TABLET GT SCH ×2 (09:00→18:03)
[2020-08-31] MEDS: FERROUS SULFATE UDC 300 MG/5 ML UDC GT SCH (09:00)
[2020-08-31] MEDS: CLOPIDOGREL BISULFATE 75 MG TABLET PO SCH (09:00)
[2020-08-31] MEDS: LOSARTAN POTASSIUM 50 MG TABLET GT SCH (09:00)
[2020-08-31] MEDS: MULTIVITAMINS,THERAGRAN 1 UDTAB TABLET GT SCH (09:00)
[2020-08-31] MEDS: CHOLECALCIFEROL 1,000 UNIT TABLET (VIT D3) GT SCH (09:00)
[2020-08-31] MEDS: ASCORBIC ACID 500 MG TABLET GT SCH (09:00)
[2020-08-31] MEDS ORDERED: ANESTHESIA TRAY IN PYXIS 1 EA TRAY MC ONE (10:06)
--- NOTE | 2020-08-31 10:50 | NUR ---
MS/RN NOTE OBTAINED PEG PLACEMENT AND ANESTHESIA CONSENT FROM CHRISTIANO CHEATHAM ([facility]), WITNESSED BY LORNE ACOSTA.
--- NOTE | 2020-08-31 10:55 | NUR ---
MS/RN NOTE Patient left to OR with all consents signed, VSS, afebrile, no SOB noted. Lab also called for covid PCR test: negative. Notified OR nurses and
--- NOTE | 2020-08-31 12:30 | NUR ---
MS/RN NOTE Patient came back from OR. VSS, afebrile, no SOB noted. IV access noted on L hand #22g, patent and intact, and flushing well. G-tube in place with clean dressing on, applied abdominal binder. Doctor ordered the following: use peg for tube feeding now and resume previous medications. Orders carried out, notified Dr. Munoz, awaiting for tube feeding orders.
[2020-08-31] MEDS: POTASSIUM CL. PREMIX PERIPHER. 50 ML IV SCH ×4 (12:46→18:36)
--- NOTE | 2020-08-31 13:30 | NUR ---
MS/RN NOTE Patient getting combative and trying to pull g-tube and IV lines. Tried redirecting, deescalating, and reorienting, but patient attempts to hit SETTER OFF and security while trying to clean patient. Ordered and applied bilateral soft restraints, will continue to monitor closely
--- NOTE | 2020-08-31 13:30 | NUR ---
RN NOTE THE PATIENT IS RECEIVED IN BED FROM MS 2. THE PATIENT IS ALERT AND ORIENTED TO SELF. DENIES SOB. IN ROOM AIR AND DENIES SOB. RESPIRATION REGULAR AND UNLABORED. DENIES PAIN. THE PATIENT IS NOTED WITH GT AND ABDOMINAL BINDER. ALSO, THE PATIENT HAS BILATERAL SOFT WRIST RESTRAINS. NO S/S POOR CIRCULATION AND NO S/S SKIN BREAKDOWN NOTED FROM THE RESTRAINS. LEFT HAND G 22 PATENT AND SALINE LOCKED. BED LOW AND LOCKED. SIDE RAILS UP X3. CALL LIGHT WITHIN REACH. WILL CONTINUE TO MONITOR.
--- NOTE | 2020-08-31 13:30 | NUR ---
MS/RN NOTE Patient transferred safely to [facility] via bed, gave report to KARLA Barrera for LIANET.
[2020-08-31] MEDS: IV NS 0.9% 1,000 ML IV PRN (13:39)
[2020-08-31 16:00] VITALS: BP 140/79
[2020-08-31] MEDS ORDERED: GLUCERNA 1.2 1,000 ML BOTTLE GT PRN (17:00)
--- NOTE | 2020-08-31 17:04 | NUR ---
RN NOTE RECEIVED AN ORDER FROM DR LOJA GT FEEDING OF GLUCERNA 1.2 AT 60 ML/HR X 24 HR AND TO START THE FEEDING AT 30 ML/HR AND ADVANCE TOLERATED TO REACH GOAL RATE OF 60 ML/HR.
[2020-08-31] MEDS: GLUCERNA 1.2 1,000 ML BOTTLE GT PRN (18:08)
--- NOTE | 2020-08-31 18:15 | NUR ---
RN NOTE THE PATIENT ALERT AND ORIENTED X4. DENIES PAIN. IN ROOM AIR AND SATURATION IS AT 98%. DENIES SOB. RESPIRATION REGULAR AND UNLABORED. PATIENT IN NO APPARENT DISTRESS. LA CG 18 PATENT AND SALINE LOCKED. BED LOW AND LOCKED. SIDE RIALS UP X2. CALL LIGHT WITHIN REACH. WILL ENDORSE TO CONTINUOUS MINER. Addendum: 08/31/20 at 1816 by PATRICK PUCKETT RN RN NOTE WRONG PATIENT ENTRY.
--- NOTE | 2020-08-31 18:30 | NUR ---
RN NOTE THE PATIENT IS ALERT AND ORIENTED TO SELF. DENIES PAIN. IN ROOM AIR AND SATURATION IS AT 95%. DENIES SOB. RESPIRATION REGULAR AND UNLABORED. PATIENT IN NO DISTRESS. BILATERAL WRIST RESTRAINS ON PER ORDER AND NO S/S POOR CIRCULATION NOTED. GT FEEDING STOPPED BECAUSE THE PATINET IS VERY RESTLESS AT THIS TIME. DR LOJA IS MADE AWARE PATIENT BEING VERY RESTLESS AND AN ORDER OF ATIVAN 1 MG IV TIMES ONE RECEIVED. NOTED AND CARRIED OUT.BED LOW AND LOCKED. SIDE RIALS UP X3. CALL LIGHT WITHIN REACH. WILL ENDORSE TO MANAGER INSPECTION.
[2020-08-31] MEDS ORDERED: LORAZEPAM INJ 2 MG/ML VIAL IV STA (18:37)
--- NOTE | 2020-08-31 19:50 | NUR ---
MS RN OPENING NOTE: Patient in bed awake and confused. Noted bilateral soft wrist restraints. Circulation WNL, no discoloration, or bruising noted. Patient on room air, breathing well, no SOB or acute respiratory distress. Noted IV access on left AC, 20 gauge, dry and intact, no redness or infiltration, infusing Potassium. Safety precaution is in place, bed is in the lowest level, bed is locked, alarm is on, side rails x2 are up, and call light is within reach. Will continue to monitor.
[2020-08-31 20:00] VITALS: BP 164/101
[2020-08-31 20:45] VITALS: BP 164/101
[2020-08-31] MEDS: TAMSULOSIN 0.4 MG CAP.SR.24H GT SCH (21:42)
[2020-08-31 21:44] VITALS: BP 164/101
[2020-09-01] MEDS: BLOOD SUGAR DIAGNOSTIC 1 EACH STRIP IN SCH ×4 (00:08→17:16)
[2020-09-01] MEDS: INSULIN REGULAR, HUMAN 100 UNIT/ML 3 ML VIAL SQ PRN ×3 (00:09→12:29)
--- NOTE | 2020-09-01 06:52 | NUR ---
MS RN CLOSING NOTE: Patient in bed awake and alert. All needs met. Patient breathing well with no SOB or respiratory distress. Safety precaution in place, bed is in the lowest level, alarm is on, brakes are on, side rails x2 are up, and call light is within reach. Will endorse to next shift.
--- NOTE | 2020-09-01 06:55 | NUR ---
MS RN NOTE: Assessed patients bilateral upper extremity every hour. Conducted frequent rounding and released restraint to assess every 15 minutes. Ensure patient is well hydrated with IV fluids. Upper extremity circulatoin is WNL and no changes in skin condition.
--- NOTE | 2020-09-01 07:30 | NUR ---
MS/RN OPENING NOTE Patient resting in bed, A&O x 1, confused. Denies any pain or discomfort at this time. Breathing even and non-labored on RA, no SOB noted. No cardiac distress noted. IV access noted on L AC #20 gauge, patent and intact, and flushing well.Sensation from all peripheral extremities intact. G-tube in place, patent and intact, no residual noted. Side rails x 2 up, bed locked to its lowest position, call light in hand. Bilateral soft wrist restraints in place, skin warm, circulation, and sensation intact. Will continue with current medical management.
[2020-09-01 08:08] LABS: BASOPHILS # (AUTO) 0.1 /CMM (0.0-0.2); BASOPHILS % (AUTO) 1.3 % (0.0-2.0); EOSINOPHILS % (AUTO) 2.6 % (0.0-6.0); HEMATOCRIT 39 % (39-51); HEMOGLOBIN 12.6 g/dL (13.5-17.5); LYMPHOCYTES # (AUTO) 1.6 /CMM (0.8-4.8); LYMPHOCYTES % (AUTO) 18.7 % (20.0-44.0); MEAN CORPUSCULAR HGB CONC 32 g/dl (31.0-36.0); MEAN CORPUSCULAR VOLUME 83 fL (80-96); MONOCYTES # (AUTO) 0.6 /CMM (0.1-1.30); MONOCYTES % (AUTO) 7.5 % (2.0-12.0); NEUTROPHILS # (AUTO) 5.8 /CMM (1.8-8.9); NEUTROPHILS % (AUTO) 69.9 % (43.0-81.0); PLATELET COUNT (AUTO) 126 /CMM (150-450); RED BLOOD CELL COUNT(AUTO) 4.69 MIL/uL (4.5-6.0); WHITE BLOOD COUNT (AUTO) 8.4 K/uL (4.3-11.0)
--- NOTE | 2020-09-01 08:45 | NUR ---
MS/RN NOTE Patient kept trying to pull lines and g-tube regardless of bilateral soft wrist restraints in place. Notified Dr. Munoz, ordered ativan 1 mg q12h. Orders carried out.
[2020-09-01] MEDS: DOCUSATE SODIUM 100 MG CAPSULE PO SCH ×2 (09:00→21:40)
[2020-09-01] MEDS ORDERED: LORAZEPAM INJ 2 MG/ML VIAL IV PRN (09:00)
[2020-09-01] MEDS: MULTIVITAMINS,THERAGRAN 1 UDTAB TABLET GT SCH (09:10)
[2020-09-01] MEDS: FERROUS SULFATE UDC 300 MG/5 ML UDC GT SCH (09:10)
[2020-09-01] MEDS: CHOLECALCIFEROL 1,000 UNIT TABLET (VIT D3) GT SCH (09:10)
[2020-09-01] MEDS: ACIDOPHILUS/BULGARICUS 1 EACH TAB.CHEW GT SCH (09:10)
[2020-09-01] MEDS: HYDROCHLOROTHIAZIDE 25 MG TABLET GT SCH (09:11)
[2020-09-01] MEDS: ATORVASTATIN 40 MG TABLET GT SCH (09:11)
[2020-09-01] MEDS: ASCORBIC ACID 500 MG TABLET GT SCH (09:11)
[2020-09-01] MEDS: FAMOTIDINE (20 MG) 20 MG TABLET GT SCH ×2 (09:11→17:10)
[2020-09-01] MEDS: LABETALOL HCL (100MG) 100 MG TABLET GT SCH ×2 (09:12→17:10)
[2020-09-01] MEDS: CLOPIDOGREL BISULFATE 75 MG TABLET PO SCH (09:12)
[2020-09-01] MEDS: AMLODIPINE BESYLATE 10 MG TABLET GT SCH (09:12)
[2020-09-01] MEDS: LOSARTAN POTASSIUM 50 MG TABLET GT SCH (09:12)
[2020-09-01 09:14] LABS: CALCIUM, SERUM 9.5 mg/dL (8.5-10.1); POTASSIUM 3.9 mmol/L (3.5-5.1)
[2020-09-01 09:15] LABS: CREATININE 1.1 mg/dL (0.6-1.3); PHOSPHORUS 3.6 mg/dL (2.5-4.9)
--- NOTE | 2020-09-01 11:00 | NUR ---
MS/RN NOTE Faxed patient's face sheet to [facility] - Dr. Lopez for psych eval.
--- NOTE | 2020-09-01 14:49 | NUR ---
MS/RN NOTE Patient is combative and attempts to pull all lines and g-tube. Redirected, reoriented, and tried to calm patient down x 3, patient still attempts to kick me. Bilateral soft wrist restraints placed, will continue to monitor closely.
[2020-09-01 16:00] VITALS: BP 162/98
[2020-09-01] MEDS: QUETIAPINE FUMARATE 25 MG TABLET PO SCH (17:09)
[2020-09-01] MEDS: GLUCERNA 1.2 1,000 ML BOTTLE GT PRN (17:10)
[2020-09-01] MEDS: IV NS 0.9% 1,000 ML IV PRN (17:12)
--- NOTE | 2020-09-01 18:30 | NUR ---
MS/RN CLOSING NOTE Patient resting in bed, A&O x 2, confused. No complaints of pain/discomfort at this time. Breathing even and non-labored on RA, no SOB noted. No cardiac distress noted. IV access noted on L AC #20 gauge, patent and intact, and running NS @ 75 ml/hr. G-tube in place, patent and intact, no gastric residual noted, running Glucerna 1.2 at 60 ml/hr. Tolerating feeding well. Sensation from all peripheral extremities intact. Fall precautions maintained. Bilateral soft wrist restraints in place, skin warm, circulation, and sensation intact. Will endorse to night auditor nurse.
--- NOTE | 2020-09-01 19:36 | NUR ---
MS RN OPENING NOTE: Patient in bed, awake and confused. Patient is yelling that he wants to get out of the airplane. Patient is kicking and banging on side rails. Noted bilateral soft wrist restraints. Circulation WNL, no discoloration, or bruising noted. Patient on room air, breathing well, no SOB or acute respiratory distress. Noted IV access on left AC, 20 gauge, dry and intact, no redness or infiltration, infusing NS. Safety precaution is in place, bed is in the lowest level, bed is locked, alarm is on, side rails x2 are up, and call light is within reach. Will continue to monitor.
--- NOTE | 2020-09-01 19:44 | NUR ---
MS RN NOTE: Patient in bed yelling that he wants to go home. He is kicking his bed side commode and banging on his side rails. Reoriented patient and reduced stimuli. Will continue to monitor.
[2020-09-01 20:00] VITALS: BP 173/90
[2020-09-01] MEDS: TAMSULOSIN 0.4 MG CAP.SR.24H GT SCH (21:40)
[2020-09-02] MEDS: BLOOD SUGAR DIAGNOSTIC 1 EACH STRIP IN SCH ×3 (00:38→12:21)
[2020-09-02] MEDS: INSULIN REGULAR, HUMAN 100 UNIT/ML 3 ML VIAL SQ PRN ×2 (00:39→05:25)
--- NOTE | 2020-09-02 06:41 | NUR ---
MS RN CLOSING NOTE: Patient in bed sleeping comfortably. All needs met. Patient breathing well with no SOB or respiratory distress. Safety precaution in place, bed is in the lowest level, alarm is on, brakes are on, side rails x2 are up, and call light is within reach. Will endorse to next shift.
[2020-09-02 06:46] LABS: BASOPHILS # (AUTO) 0.1 /CMM (0.0-0.2); BASOPHILS % (AUTO) 1.7 % (0.0-2.0); EOSINOPHILS % (AUTO) 4.9 % (0.0-6.0); HEMATOCRIT 38 % (39-51); HEMOGLOBIN 12.3 g/dL (13.5-17.5); LYMPHOCYTES % (AUTO) 29.6 % (20.0-44.0); MEAN CORPUSCULAR HGB CONC 32 g/dl (31.0-36.0); MEAN CORPUSCULAR VOLUME 84 fL (80-96); MONOCYTES # (AUTO) 0.6 /CMM (0.1-1.30); MONOCYTES % (AUTO) 9.5 % (2.0-12.0); NEUTROPHILS # (AUTO) 3.6 /CMM (1.8-8.9); NEUTROPHILS % (AUTO) 54.3 % (43.0-81.0); PLATELET COUNT (AUTO) 111 /CMM (150-450); RED BLOOD CELL COUNT(AUTO) 4.57 MIL/uL (4.5-6.0); WHITE BLOOD COUNT (AUTO) 6.6 K/uL (4.3-11.0)
[2020-09-02 06:47] LABS: CALCIUM, SERUM 9.4 mg/dL (8.5-10.1); CREATININE 1.1 mg/dL (0.6-1.3); MAGNESIUM 2.2 mg/dL (1.8-2.4); PHOSPHORUS 4.4 mg/dL (2.5-4.9); POTASSIUM 3.6 mmol/L (3.5-5.1)
--- NOTE | 2020-09-02 06:54 | NUR ---
MS RN NOTE: Assessed patients bilateral upper extremity every hour. Conducted frequent rounding and released restraint to assess every 15 minutes. Ensure patient is well hydrated with IV fluids. Upper extremity circulation is WNL and no changes in skin condition.
--- NOTE | 2020-09-02 07:35 | NUR ---
Patient in bed, confused. Bilateral soft wrist restraints. Circulation WNL . Patient on room air, tolerating well, no SOB or acute respiratory distress. Noted IV access on left AC, 20 gauge, dry and intact, infusing NS. G-tube feeding running as ordered, no residual at this time. Safety precaution is in place, bed is in the lowest level, bed is locked, alarm is on, side rails x2 are up, and call light is within reach. Will continue to monitor.
[2020-09-02 08:00] VITALS: BP 170/99
[2020-09-02] MEDS: MULTIVITAMINS,THERAGRAN 1 UDTAB TABLET GT SCH (08:43)
[2020-09-02] MEDS: AMLODIPINE BESYLATE 10 MG TABLET GT SCH (08:43)
[2020-09-02] MEDS: FERROUS SULFATE UDC 300 MG/5 ML UDC GT SCH (08:43)
[2020-09-02] MEDS: ASCORBIC ACID 500 MG TABLET GT SCH (08:43)
[2020-09-02] MEDS: ATORVASTATIN 40 MG TABLET GT SCH (08:43)
[2020-09-02] MEDS: CHOLECALCIFEROL 1,000 UNIT TABLET (VIT D3) GT SCH (08:43)
[2020-09-02] MEDS: DOCUSATE SODIUM 100 MG CAPSULE PO SCH (08:44)
[2020-09-02] MEDS: CLOPIDOGREL BISULFATE 75 MG TABLET PO SCH (08:44)
[2020-09-02] MEDS: LABETALOL HCL (100MG) 100 MG TABLET GT SCH (08:44)
[2020-09-02] MEDS: FAMOTIDINE (20 MG) 20 MG TABLET GT SCH (08:44)
[2020-09-02] MEDS: HYDROCHLOROTHIAZIDE 25 MG TABLET GT SCH (08:44)
[2020-09-02] MEDS: ACIDOPHILUS/BULGARICUS 1 EACH TAB.CHEW GT SCH (08:44)
[2020-09-02] MEDS: LOSARTAN POTASSIUM 50 MG TABLET GT SCH (08:44)
[2020-09-02] MEDS: QUETIAPINE FUMARATE 25 MG TABLET PO SCH (08:44)
[2020-09-02] MEDS ORDERED: hydrALAZINE HCL 25 MG TABLET PO SCH (11:00)
[2020-09-02 11:11] VITALS: BP 161/87
[2020-09-02] MEDS ORDERED: QUET25TA PO (14:54)
[2020-09-02] MEDS ORDERED: HYDR-4076 PO (14:54)
--- NOTE | 2020-09-02 16:00 | NUR ---
Report called to facility. RN is busy with another admission. Call back number left .
--- NOTE | 2020-09-02 17:40 | NUR ---
Patient cleared for d/c to facility by . Patient calm and cooperative , not combative. Oriented to self. VS are stable and within baseline. Breathing unlabored and even on room , tolerating well. Unable to provide teaching and d/c instructions to patient ; patient is unable due to confusion. IV line removed amd ID wrist band removed. D/C pictures were taken and placed in the chart. All needs attended prior discharge. Patient safely picked up by ambulance
--- NOTE | 2020-09-02 17:50 | NUR ---
Called to facility again. Report given to Randa ACOSTA .
== END 2020-09-02 17:43 | DRG 252 ==
LOC: ER 08:01 → MEDSG2 10:34 → MED 08-31 13:45
PROVIDERS: ADMIT Nurse Practitioner Acute Care; ATTEND Student in an Organized Health Care Education/Training Program
PROC: 0DH63UZ Insertion of Feeding Device into Stomach, Percutaneous Approach (ICD-10-PCS; principal; 2020-08-31)
DX: K94.23 Gastrostomy malfunction (principal); N17.0 Acute kidney failure with tubular necrosis; I25.10 Atherosclerotic heart disease of native coronary artery without angina pectoris; F41.9 Anxiety disorder, unspecified; Z87.440 Personal history of urinary (tract) infections; Z86.718 Personal history of other venous thrombosis and embolism; F17.210 Nicotine dependence, cigarettes, uncomplicated; E11.9 Type 2 diabetes mellitus without complications; D69.6 Thrombocytopenia, unspecified; D63.8 Anemia in other chronic diseases classified elsewhere; Z79.02 Long term (current) use of antithrombotics/antiplatelets; E78.5 Hyperlipidemia, unspecified; I10 Essential (primary) hypertension; Z79.84 Long term (current) use of oral hypoglycemic drugs; Z79.01 Long term (current) use of anticoagulants; I69.320 Aphasia following cerebral infarction; I69.391 Dysphagia following cerebral infarction; Y83.8 Other surgical procedures as the cause of abnormal reaction of the patient, or of later complication, without mention of misadventure at the time of the procedure; Y73.8 Miscellaneous gastroenterology and urology devices associated with adverse incidents, not elsewhere classified; Y92.129 Unspecified place in nursing home as the place of occurrence of the external cause
CPT/HCPCS: 36415; 43246; 71045-TC; 80048-TC; 80061-TC; 82962-TC; 83735-TC; 84100-TC; 84439-TC; 84443-TC; 85025-TC; 85730-TC; 86850-TC; 87081-TC; 92526; 92611-TC; G0378; J0690; J1815; J2060; J2704; J3480; J7030; U0003

== ENCOUNTER 2020-09-03 07:44 | Emergency (ER) | payer OTHER ==
[~2020-09-03] VITALS: Ht 180.3 cm; Wt 108.9 kg
[~2020-09-03 07:44] MED LIST changes: +AMLO-213 GT; -AMLO10TA7 GT; -AMPI1VIA12 IJ; -APIX5TAB PO; -CAND16TA13 GT; +HYDR-4076 PO; -NYST5ORA MM; +OLME40TA12 PO; +QUET25TA PO; -RXGEN XX; -TIOT18CA3 IH; +UMEC62.5 IH
--- NOTE | 2020-09-03 07:50 | NUR ---
PT BIB [facility] FROM [facility], PER REPORT PULLED OUT HIS GTUBE AT THE SNF. VS CHECKED. AWAITING MD CHURCH
--- NOTE | 2020-09-03 07:50 | NUR ---
Note inez in EDM - 09/03/20 at 0809 by CHILANGO PT BIB [facility] FROM [facility], PER REPORT PULLED OUT HIS GTUBE AT THE [facility]. VS CHECKED. AWAITING MD CHURCH
--- NOTE | 2020-09-03 07:55 | NUR ---
Claudette wiley in [facility] - 09/03/20 at 0809 by CHILANGO MD IN THE ROOM, RE-INSERTING GTUBE.
--- NOTE | 2020-09-03 07:55 | NUR ---
IN THE ROOM, RE-INSERTING GTUBE.
--- NOTE | 2020-09-03 08:02 | NUR ---
GTUBE REINSERTED BY MD. BLANKENSHIP . AWAITING TO CONFIRM PLACEMENT VIA CHEST XRAY
--- NOTE | 2020-09-03 08:02 | NUR ---
Note inez in EDM - 09/03/20 at 0817 by SHIRLEY TEMO RE-INSERTED BY MD. BLANKENSHIP . INTACT AND PATENT AND FLUSHING WELL. PER PT LEAH TO GO BACK TO SNF
--- NOTE | 2020-09-03 08:02 | NUR ---
Note inez in EDM - 09/03/20 at 0809 by CHILANGO YOHANAUBE RE-INSERTED BY MD. BLANKENSHIP 22. INTACT AND PATENT AND FLUSHING WELL. PER PT OKAY TO GO BACK TO SNF
[2020-09-03] MEDS ORDERED: DIATR MEGLU/DIATRIZOATE SODIUM 30 ML BOTTLE (GASTROGRAPHIN) ONE (08:16)
--- NOTE | 2020-09-03 08:23 | NUR ---
STEM DRYER MAINTAINER BY BEDSIDE CONFIRMING PLACEMENT. GASTROGAFIN ADMINISTERED.
[2020-09-03] MEDS ORDERED: DIATR MEGLU/DIATRIZOATE SODIUM 30 ML BOTTLE (GASTROGRAPHIN) PO ONE (08:30)
--- NOTE | 2020-09-03 08:41 | NUR ---
CO CARE X2 SATHISH MENDEZ [phone]
--- NOTE | 2020-09-03 09:34 | NUR ---
REPORT GIVEN TO EMT FOR AMBULIFE TRANSPORT. PT WILL BE RETURNING TO [facility]
--- NOTE | 2020-09-03 09:35 | NUR ---
COPY OF CHEST XRAY GIVEN TO EMT TO PROVIDE TO THE SNF
[2020-09-03 09:36] VITALS: BP 141/85
== END 2020-09-03 09:37 ==
LOC: ER 07:46
DX: K94.23 Gastrostomy malfunction (principal); I10 Essential (primary) hypertension; I25.2 Old myocardial infarction; E78.5 Hyperlipidemia, unspecified; Z87.440 Personal history of urinary (tract) infections; Z79.899 Other long term (current) drug therapy
CPT/HCPCS: 43762; 74018; 99284; Q9963